=== PATIENT | female | born 1995 | race Caucasian/White ===

== ENCOUNTER 2018-11-07 10:29 | Emergency (ER) | payer MEDICAID, OTHER ==
[~2018-11-07] VITALS: Ht 167.6 cm; Wt 78.9 kg
[~2018-11-07 10:29] MED LIST: AMOX500C2 PO; BCP; HYDR-757 PO; LISD10CA PO
--- OUTSIDE RECORDS SUMMARY | 2018-11-07 10:34 | XMS REPORT ---
Author Author Gray Aiken [facility] Address [address], [address] [place] [address] Care Team Providers Care Ruling Technician Name Role Phone Gray Aiken Unavailable PROBLEMS Unknown Problems ALLERGIES No Information SOCIAL HISTORY Never Assessed PLAN OF CARE VITAL SIGNS MEDICATIONS Unknown Medications RESULTS No Results PROCEDURES No Known procedures IMMUNIZATIONS No Known Immunizations
--- OUTSIDE RECORDS SUMMARY | 2018-11-07 10:34 | XMS REPORT ---
Author Author Jenny Pena [facility] Address [address] [place] [address], [address] [place] [address] Care Team Providers Care Milieu Coordinator Name Role Phone Jenny Pena Unavailable PROBLEMS Type Condition ICD9-CM Code [id number] Code Onset Dates Condition Status SNOMED Code Problem Overweight E66.3 Active 148192154 ALLERGIES No Information ENCOUNTERS Encounter Location Date Diagnosis [facility] [address] [place] [address] [address] [place], [place] [id number] Oct, Dental examination Z01.20 and Other specified disorders of teeth and supporting structures K08.[address] [id number] [place] [phone] Sep, control counseling Z30.09 ; Screening for STD (sexually transmitted disease) Z11.3 ; Acute pharyngitis due to other specified organisms J02.8 and Overweight E66.3 [facility] [address] [place] [address] [address] [place], [place] [id number] Sep, Dental examination Z01.20 ; Other specified disorders of teeth and supporting structures K08.89 ; Encounter for dental examination and cleaning without abnormal findings Z01.20 and Encounter for dental examination Z01.[address] [id number] [place], [place] [phone] Sep, IMMUNIZATIONS No Known Immunizations SOCIAL HISTORY Never Assessed REASON FOR VISIT D-record PLAN OF CARE VITAL SIGNS MEDICATIONS Medication Instructions Dosage Frequency Start Date End Date Duration Status Flonase 50 MCG/ACT Nasally Once a day 1 spray in each nostril 24h Sep, 30 day(s) Active Depo-Provera Sep, Active Depo-Provera 150 MG/ML Intramuscular every 3 months 1 ml Sep, 90 days Active Mucinex Active Benzonatate 100 MG Orally Three times a day 1 capsule as needed 8h Sep, 7 days Active RESULTS No Results PROCEDURES No Known procedures INSTRUCTIONS MEDICATIONS ADMINISTERED No Known Medications MEDICAL (GENERAL) HISTORY Type Description Date Medical History Overweight Surgical History tonsillectomy
--- OUTSIDE RECORDS SUMMARY | 2018-11-07 10:34 | XMS REPORT ---
Author Author Jenny Pena [facility] Address [address] [place] [address], [facility] [address] [place] [address] Care Team Providers Care Spacer Type Bar And Segment Name Role Phone Jenny Pena Unavailable PROBLEMS Type Condition ICD9-CM Code MPT66-NT Code Onset Dates Condition Status SNOMED Code Problem Overweight E66.3 Active 081491008 ALLERGIES No Known Allergies ENCOUNTERS Encounter Location Date Diagnosis [address] [id number] [phone] Sep, control counseling Z30.09 ; Screening for STD (sexually transmitted disease) Z11.3 ; Acute pharyngitis due to other specified organisms J02.8 and Overweight E66.3 [facility] [address] [place] [id number] Sep, Dental examination Z01.20 ; Other specified disorders of teeth and supporting structures K08.89 ; Encounter for dental examination and cleaning without abnormal findings Z01.20 and Encounter for dental examination Z01.[address] [id number] [place], [place] [phone] Sep, IMMUNIZATIONS No Known Immunizations SOCIAL HISTORY Never Assessed REASON FOR VISIT D-ER, D - ADULT ANTONY, D-Adult Comprehensive Exam PLAN OF CARE Activity Details Follow Up 2 Weeks Reason:D-ANTONY VITAL SIGNS Heart Rate 79 /min 2018-10-05 Blood pressure systolic 102 mm Hg 2018-10-05 Blood pressure diastolic 67 mm Hg 2018-10-05 MEDICATIONS No Known Medications RESULTS No Results PROCEDURES Procedure Date Ordered Result Body Site LTD ORAL EVALUATION - PROBLEM FOCUS Oct 05, 2018 INTRAORL-PERIAPICAL 1 FILM [id number] Oct 05, 2018 PANORAMIC FILM SEE ALSO CODE 24750 Oct 05, 2018 BITEWING - SINGLE FILM Oct 05, 2018 INSTRUCTIONS MEDICATIONS ADMINISTERED No Known Medications MEDICAL (GENERAL) HISTORY Type Description Date Medical History Overweight Surgical History tonsillectomy
--- OUTSIDE RECORDS SUMMARY | 2018-11-07 10:34 | XMS REPORT ---
Author Author MARILEE TY [facility] Address Unknown Care Team Providers Care Engineering Designer Name Role Phone MARILEE TY Unavailable PROBLEMS Type Condition ICD9-CM Code EHX49-BO Code Onset Dates Condition Status SNOMED Code Problem Headache R51 Active 574252340 Problem Depressive disorder F32.9 Active 65181113 Problem Nondependent cannabis abuse F12.10 Active 426167220 Problem Attention deficit disorder without hyperactivity F90.0 Active 24249697 Problem Attention deficit disorder with hyperactivity F90.9 Active 691796056 ALLERGIES No Known Allergies SOCIAL HISTORY Never Assessed PLAN OF CARE Activity Details Follow Up 1 Week Reason:filling #8 VITAL SIGNS MEDICATIONS No Known Medications RESULTS No Results PROCEDURES Procedure Date Ordered Result Body Site LTD ORAL EVALUATION - PROBLEM FOCUS March 17, 2017 INTRAORL-PERIAPICAL 1 FILM 16044 March 17, 2017 IMMUNIZATIONS No Known Immunizations MEDICAL (GENERAL) HISTORY Type Description Date Medical History ADHD
--- OUTSIDE RECORDS SUMMARY | 2018-11-07 10:34 | XMS REPORT ---
Author Author RONAK DELGADO [facility] e[employer] Address Unknown Phone Unavailable Care Team Providers Care Dairy Cattle Farm Manager Name Role Phone RONAK DELGADO CP Unavailable Allergies No Known Allergies Problems Problem Type Condition Code Onset Dates Condition Status Problem Surveillance of other previously prescribed contraceptive method V25.49 Active Problem Nondependent cannabis abuse, unspecified 305.20 Active Problem General counseling for initiation of other contraceptive measures V25.02 Active Problem Attention deficit disorder of childhood with hyperactivity 314.01 Active Problem examination or test, negative result V72.41 Active Problem Unspecified viral infection, in conditions classified elsewhere and of unspecified site 079.99 Active Problem Cough 786.2 Active Problem Headache 784.0 Active Problem Allergic rhinitis due to pollen 477.0 Active Problem Diarrhea 787.91 Active Problem MENINGOCOCCAL DX V03.89 Active Problem Attention deficit disorder of childhood without mention of hyperactivity 314.00 Active Problem Depressive disorder, not elsewhere classified 311 Active Problem Acute sinusitis, unspecified 461.9 Active Problem Encounter for long-term (current) use of other medications V58.69 Active Problem Acute pharyngitis 462 Active Medications Medication Code System Code Instructions Start Date End Date Status Dosage Vyvanse [facility] [address]-89 70 MG Orally Once a day. Dr Rodriguez to sign for Robson Sep 04, 2014 take 1 capsule (70 mg) by oral route once daily in the morning For ADHD Results No Known Results Summary Purpose eClinicalWorks Submission
--- OUTSIDE RECORDS SUMMARY | 2018-11-07 10:34 | XMS REPORT ---
Author Author RAISSA LOZOYA Organization [employer] Address Unknown Phone Unavailable Care Team Providers Care Fish Roe Processor Name Role Phone RAISSA LOZOYA CP Unavailable Allergies No Known Allergies Problems Problem Type Condition Code Onset Dates Condition Status Problem Headache R51 Active Problem Nondependent cannabis abuse F12.10 Active Problem Attention deficit disorder with hyperactivity F90.9 Active Problem Attention deficit disorder without hyperactivity F90.0 Active Problem Depressive disorder F32.9 Active Medications Medication Code System Code Instructions Start Date End Date Status Dosage Vyvanse [facility] [id number] 70 MG TAKE ONE CAPSULE BY MOUTH ONCE DAILY IN THE MORNING FOR ADHD Results No Known Results Summary Purpose eClinicalWorks Submission
--- OUTSIDE RECORDS SUMMARY | 2018-11-07 10:34 | XMS REPORT ---
Author Author EVELINA THOMASON [facility] eClinical[employer] Address Unknown Phone Unavailable Care Team Providers Care Program Consultant Name Role Phone EVELINA THOMASON CP Unavailable Allergies, Adverse Reactions, Alerts Substance Reaction Event Type N.K.D.A. Info Not Available Non Drug Allergy Problems Problem Type Condition Code Onset Dates [...] pollen 477.0 Active Problem Diarrhea 787.91 Active Assessment Attention-deficit hyperactivity disorder, predominantly hyperactive type F90.1 Active Problem MENINGOCOCCAL DX V03.89 Active Problem Attention deficit disorder of childhood without mention of hyperactivity 314.00 Active Problem Depressive disorder, not elsewhere classified 311 Active Problem Acute sinusitis, unspecified 461.9 Active Problem Encounter for long-term (current) use of other medications V58.69 Active Problem Acute pharyngitis 462 Active Medications Medication Code System Code Instructions Start Date End Date Status Dosage Depo-Provera [facility] [address]-27 150 mg/mL Dec 22, 2013 inject 150 mg by intramuscular route every 3 months Vyvanse [facility] [address]-00 70 MG Orally Once a day. Dr Rodriguez to sign for Robson Sep 04, 2014 take 1 capsule (70 mg) by oral route once daily in the morning For ADHD Adderall [facility] [address]-37 10 MG Orally Once a day at 1600 Oct 26, 2015 1 tablet Procedures Procedure Coding System Code Date Office Visit, Est Pt., Level 4 CPT-4 00632 Oct 26, 2015 Vital Signs Date/Time: Oct 26, 2015 Cardiac Monitoring Heart Rate 100 bpm Weight 159.2 lbs Height 66 in Wt Percentile 89.46 % BMI 25.69 Index Blood Pressure Diastolic 70 mmHg Blood Pressure Systolic 120 mmHg BMIPercentile 85.12 % Results No Known Results Summary Purpose eClinicalWorks Submission
--- OUTSIDE RECORDS SUMMARY | 2018-11-07 10:35 | XMS REPORT ---
Author Author JANNY GUEVARA Organization [employer] Address Unknown Phone Unavailable Care Team Providers Care Parking Ramp Attendant Name Role Phone JANNY GUEVARA CP Unavailable Allergies No Known Allergies Problems [...] Instructions Start Date End Date Status Dosage Emmanuellenokristin [facility] [address]-01 70 MG Orally Once a day Sep 04, 2014 take 1 capsule (70 mg) by oral route once daily in the morning For ADHD Results No Known Results Summary Purpose eClinicalWorks Submission
--- OUTSIDE RECORDS SUMMARY | 2018-11-07 10:35 | XMS REPORT ---
Author Author SLIME CAUSEY Organization [employer] Address Unknown Phone Unavailable Care Team Providers Care Medical Orderly Name Role Phone SLIME CAUSEY CP Unavailable Allergies, Adverse Reactions, Alerts Substance [...] 477.0 Active Problem Diarrhea 787.91 Active Assessment Allergic rhinitis J30.9 Active Assessment Upper respiratory symptom R09.89 Active Problem MENINGOCOCCAL DX V03.89 Active Problem Attention deficit disorder of childhood without mention of hyperactivity 314.00 Active Problem Depressive disorder, not elsewhere classified 311 Active Problem Acute sinusitis, unspecified 461.9 Active Problem Encounter for long-term (current) use of other medications V58.69 Active Problem Acute pharyngitis 462 Active Medications Medication Code System Code Instructions Start Date End Date Status Dosage Vyvanse [facility] [address]-28 70 MG Orally Once a day. Dr Rodriguez to sign for Robson Sep 04, 2014 take 1 capsule (70 mg) by oral route once daily in the morning For ADHD Adderall [facility] [address]-99 10 MG Orally Once a day at 1600 Oct 26, 2015 1 tablet Nasal Mist [facility] [address] not defined Fluticasone Propionate [facility] [address]-19 50 MCG/ACT Nasally Once a day Oct 29, 2015 1 spray in each nostril Mucinex Fast-Max Cold Flu [facility] [address]-24 not defined Procedures Procedure Coding System Code Date Office Visit, Est Pt., Level 3 CPT-4 42115 Oct 29, 2015 MEASURE BLOOD OXYGEN LEVEL CPT-4 54590 Oct 29, 2015 Vital Signs Date/Time: Oct 29, 2015 Temperature 98.2 F BMIPercentile 85.89 % Weight 160.4 lbs Height 66 in Oximetry 98 % Blood Pressure Diastolic 72 mmHg Blood Pressure Systolic 100 mmHg Cardiac Monitoring Heart Rate 78 bpm Wt Percentile 89.99 % BMI 25.89 Index Results No Known Results Summary Purpose eClinicalWorks Submission
--- OUTSIDE RECORDS SUMMARY | 2018-11-07 10:35 | XMS REPORT ---
Author Author RONAK DELGADO [facility] eClinicalWorks Address Unknown Phone Unavailable Care Team Providers Care Felt Machine Mechanic Name Role Phone RONAK DELGADO CP Unavailable [...] Start Date End Date Status Dosage Vyvanse [facility] [address]-96 70 MG Orally Once a day. Dr Rodriguez to sign for Robson Sep 04, 2014 take 1 capsule (70 mg) by oral route once daily in the morning For ADHD Results No Known Results Summary Purpose eClinicalWorks Submission
--- OUTSIDE RECORDS SUMMARY | 2018-11-07 10:35 | XMS REPORT ---
Author Author GERARDOMARILEE HINKLE [facility] Address Unknown Care Team Providers Care Material Control Clerk Name Role Phone MARILEE TY Unavailable PROBLEMS Type Condition ICD9-CM Code OPA63-EB Code Onset Dates Condition Status SNOMED Code Problem Headache R51 Active 346761837 Problem Depressive disorder F32.9 Active 20470869 Problem Nondependent cannabis abuse F12.10 Active 372104886 Problem Attention deficit disorder without hyperactivity F90.0 Active 84083739 Problem Attention deficit disorder with hyperactivity F90.9 Active 499601134 ALLERGIES No Known Allergies ENCOUNTERS Encounter Location Date Diagnosis [facility] [id number] [place] [address] [id number] May, Dental examination Z01.20 [facility] [id number] [place] [address] [id number] March, Dental examination Z01.20 [facility] [id number] [place] [address] 54235- 7638 Sep, [facility] [id number] [place] [address] 91474- 5242 Aug, [facility] [id number] [place] [address] 16109- 0138 Jul, [facility] [id number] [place] [address] 19651- 0374 May, [facility] [id number] [place] [address] 62945- 8089 May, [facility] [id number] [place] [address] 01212- 2496 Apr, [facility] [id number] [place] [address] 37753- 5379 Apr, [facility] [address] [address] March, Attention-deficit hyperactivity disorder, predominantly hyperactive type F90.1 [facility] [id number] [place] [address] 49468 -1601 March, Sore throat J02.9 and Strep throat J02.0 [place] [id number] [place] [address] 64211- 9818 March, [facility] [id number] [place] [address] 71704- 3509 Feb, [place] [address] [address]- 7820 Jan, [facility] [place] [id number] [place] [address] 58598 -4244 24 Dec, 2015 Diarrhea R19.7 and Vomiting without nausea R11.11 [place] [id number] [place] [address] 77274- 6832 Dec, [facility] [place] [id number] [place] [address] 73499 -8702 Dec, Strep throat J02.0 [place] [id number] [place] [address] 15963- 4162 03 Dec, 2015 Encounter for counseling regarding contraception Z30.9 ; Encounter for initial prescription of injectable contraceptive Z30.013 and Routine screening for STI (sexually transmitted infection) Z11.3 [place] [address] [place] [address] 19720- 7350 Nov, [facility] [place] [id number] [place] [address] 49596 -0319 14 Oct, 2015 Upper respiratory symptom R09.89 and Allergic rhinitis J30.9 [place] [address] [place] [address] 56886- 9856 11 Oct, 2015 Attention-deficit hyperactivity disorder, predominantly hyperactive type F90.1 [place] [address] [address] 58[address] Sep, [facility] [id number] [place] [address] 40827- 8532 Sep, Encounter for [facility] Z23 [facility] [address] [address] 05 Sep, 2015 Otitis media of left ear H66.92 ; Acute pharyngitis 462 and Pharyngitis J02.9 [facility] [id number] [address] 8997 Sep, [facility] [id number] [place] [address] 16149- 0735 10 Aug, 2015 [facility] [id number] [place] [address] 57087- 4631 11 Jul, 2015 Attention deficit disorder of childhood with hyperactivity 314.01 [facility] [id number] [place] [address] 33771- 3232 31 Jun, 2015 Pharyngitis 462 [facility] [id number] [place] [address] 13232- 8448 14 Feb, 2015 [facility] [id number] [place] [address] 66217- 2520 Feb, [facility] [address] [address]- 6538 Aug, [facility] [id number] [address]- 9733 Aug, [facility] [address] [address]- 5438 18 Jul, 2014 [facility] [address] [address]- 7790 18 Jul, 2014 [facility] [address] [address]- 8198 08 Jul, 2014 [facility] [address] [place] [address]- 2921 Jul, [facility] [place] [facility] [address] [id number] [place] [address]- 7734 Jun, [facility] [place] [facility] [address] [id number] [place] [address]- 6493 Jun, [facility] [place] [facility] [address] [id number] [place] [address]- 0764 Jun, [facility] [place] [facility] [address] [id number] [place] [address]- 8514 Jun, [facility] [place] [facility] [address] [id number] [place] [address]- 3685 Jun, [facility] [place] [facility] [address] [id number] [place] [address]- 3638 Jun, [facility] [place] [facility] [address] [id number] [place] [address]- 4877 Jun, [facility] [place] [facility] [address] [id number] [place] [address]- 6194 Jun, [facility] [place] [facility] [address] [id number] [place] [address]- 2696 May, [facility] [place] [facility] [address] [id number] [place] [address]- 9480 May, [facility] [place] [facility] [address] [id number] [place] [address]- 3961 Apr, [facility] [place] [facility] [address] [id number] [place] [address]- 7696 Apr, [facility] [place] [facility] [address] [id number] [place] [address]- 7902 Apr, [facility] [place] [facility] [address] [id number] [place] [address]- 5813 Apr, [facility] [place] [facility] [address] [id number] [place] [address]- 9901 Apr, [facility] [place] [facility] [address] [id number] [place] [address]- 3655 Apr, [facility] [place] [facility] [address] [id number] [place] [address]- 6687 March, [facility] [place] [facility] [address] [id number] [place] [address]- 7136 March, [facility] [place] [facility] [address] [id number] [place] [address]- 4985 March, [facility] [place] [facility] [address] [id number] [place] [address]- 2476 March, [facility] [place] [facility] [address] [id number] [place] [address]- 0737 March, [facility] [place] [facility] [address] [id number] [place] [address]- 7461 March, [facility] [place] [facility] [address] [id number] [place] [address]- 4445 March, [facility] [place] [facility] [address] [id number] [place] [address]- 7768 March, [facility] [place] [facility] [address] [id number] [place] [address]- 4305 March, [facility] [place] [facility] [address] [id number] [place] [address]- 9724 March, [facility] [place] [facility] [address] [id number] [place] [address]- 8771 Feb, [facility] [place] [facility] [address] [id number] [place] [address]- 3434 Feb, [facility] [place] [facility] [address] [id number] [place] [address]- 6931 Feb, [facility] [place] [facility] [address] [id number] [place] [address]- 8535 Feb, [facility] [place] [facility] [address] [id number] [place] [address]- 0938 Feb, [facility] [place] [facility] [address] [id number] [place] [address]- 3869 Feb, [facility] [place] [facility] [address] [id number] [place] [address]- 4402 Feb, [facility] [place] [facility] [address] [id number] [place] [address]- 0900 Feb, [facility] [place] [facility] [address] [id number] [place] [address]- 2725 Feb, [facility] [place] [facility] [address] [id number] [place] [address]- 3338 Feb, [facility] [place] [facility] [address] [id number] [place] [address]- 1671 Feb, [facility] [place] [facility] [address] [id number] [place] [address]- 2187 Jan, [facility] [place] [facility] [address] [id number] [place] [address]- 3392 Jan, [facility] [place] [facility] [address] [id number] [place] [address]- 8295 Jan, [facility] [place] [facility] [address] [id number] [place] [address]- 1172 Jan, [facility] [place] [facility] [address] [id number] [place] [address]- 4442 Jan, [facility] [place] [facility] [address] [id number] [place] [address]- 2314 Jan, [facility] [place] [facility] [address] [id number] [place] [address]- 5249 Jan, [facility] [place] [facility] [address] [id number] [place] [address]- 4967 Jan, [facility] [place] [facility] [address] [id number] [place] [address]- 8909 Jan, [facility] [place] [facility] [address] [id number] [place] [address]- 5673 14 Jan, 2014 [facility] [place] [facility] [address] [id number] [place] [address]- 7642 14 Jan, 2014 [facility] [place] [facility] [address] [id number] [place] [address]- 1604 06 Jan, 2014 [facility] [place] [facility] [address] [id number] [place] [address]- 4504 06 Jan, 2014 [facility] [place] [facility] [address] [id number] [place] [address]- 6020 05 Jan, 2014 [facility] [place] [facility] [address] [id number] [place] [address]- 7975 05 Jan, 2014 [facility] [place] [facility] [address] [id number] [place] [address]- 0159 Dec, [facility] [place] [facility] [address] [id number] [place] [address]- 6803 Dec, [facility] [place] [facility] [address] [id number] [place] [address]- 3310 Dec, [facility] [place] [facility] [address] [facility] [id number] [place] [address]- 9483 Dec, [facility] [place] [facility] [address] [facility] [id number] [place] [address]- 0334 Dec, [facility] [place] [facility] [address] [id number] [place] [address]- 7590 Dec, [facility] [place] [facility] [address] [id number] [place] [address]- 6512 Dec, [facility] [place] [facility] [address] [id number] [place] [address]- 6839 Dec, [facility] [place] [facility] [address] [id number] [place] [address]- 9439 Nov, [facility] [place] [facility] [address] [id number] [address]- 9350 Nov, [facility] [address] [id number] [place] [address]- 7126 Nov, [facility] [place] [facility] [address] [id number] [address]- 6730 Nov, [facility] [place] [facility] [address] [facility] [id number] [place] [address]- 0658 Oct, [facility] [place] [facility] [address] [id number] [address]- 2115 Oct, [facility] [place] [facility] [address] [id number] [place] [address]- 9626 Sep, [facility] [place] [facility] [address] [id number] [place] [address]- 2684 Sep, [facility] [address] [facility] [id number] [address]- 2153 Sep, [facility] [place] [facility] [address] [id number] [address]- 1250 Sep, [facility] [place] [facility] [id number] [address]- 3929 Sep, [facility] [place] [facility] [address] [facility] [id number] [address]- 3579 Sep, [facility] [place] [facility] [address] [id number] [address]- 7490 Sep, [facility] [place] [facility] [address] [id number], [place] [address]- 8797 Sep, [facility] [place] [facility] [address] [id number] [address]- 4577 Aug, [facility] [place] [facility] [address] [facility] [id number] [address]- 1506 Aug, [facility] [place] [facility] [address] [facility] [id number] [address]- 2144 Aug, [facility] [place] [facility] [address] [id number] [place] [address]- 9761 Aug, [facility] [place] [facility] [address] [id number] [place] [address]- 1182 Aug, [facility] [place] [facility] [address] [id number] [place] [address]- 8960 Aug, [facility] [place] [facility] [address] [id number] [place] [address]- 1653 Aug, [facility] [place] [facility] [address] [id number] [place] [address]- 0287 Aug, [facility] [place] [facility] [address] [id number] [place] [address]- 9116 Jun, [facility] [place] [facility] [address] [id number] [place] [address]- 5516 Jun, [facility] [place] [facility] [address] [id number] [place] [address]- 6073 Jun, [facility] [place] [facility] [address] [id number] [place] [address]- 9398 Jun, [facility] [place] [facility] [address] [id number] [place] [address]- 4002 Jun, [facility] [place] [facility] [address] [id number] [place] [address]- 8955 Jun, [facility] [place] [facility] [address] [id number] [place] [address]- 8559 Jun, [facility] [place] [facility] [address] [id number] [place] [address]- 1552 May, [facility] [place] [facility] [address] [id number] [place] [address]- 1719 Apr, [facility] [place] [facility] [address] [id number] [place] [address]- 9467 Apr, [facility] [place] [facility] [address] [id number] [place] [address]- 6913 Apr, [facility] [address] [id number] [place] [address]- 2899 March, [facility] [place] [facility] [address] [id number] [place] [address]- 9916 March, [facility] [place] [facility] [address] [id number] [place] [address]- 8598 Feb, [facility] [place] [facility] [address] [id number] [place] [address]- 3053 Feb, [facility] [place] [facility] [address] [id number] [place] [address]- 5291 Jan, [facility] [place] [facility] [address] [id number] [place] [address]- 7298 Jan, [facility] [place] [facility] [address] [id number] [place] [address]- 0723 Dec, [facility] [place] [facility] [address] [id number] [place] [address]- 3797 Nov, [facility] [place] [facility] [address] [id number] [place] [address]- 4377 Nov, [facility] [place] [facility] [address] [facility] [id number] [place] [address]- 2450 Oct, [facility] [place] [facility] [address] [id number], [place] [address]- 1275 Oct, [facility] [place] [facility] [address] [id number], [place] [address]- 4912 Sep, [facility] [place] [facility] [address] [id number] [place] [address]- 5691 Sep, [facility] [place] [facility] [address] [id number] [place] [address]- 0408 Aug, [facility] [place] [facility] [address] [id number] [place] [address]- 7046 Aug, [facility] [place] [facility] [address] [address]- 5357 Aug, [facility] [address] [address]- 0711 Aug, [facility] [address], [place] [address]- 1878 Jul, [facility] [address] [address]- 4254 Jun, [facility] [address] [address]- 1648 Jun, [facility] [address], [place] [address]- 1955 Jun, [facility] [address] [address]- 5447 Jun, [facility] [id number] [address]- 3755 March, [facility] [address] [address]- 1724 Feb, [facility] [address] [address]- 7592 Jan, [facility] [address] [address]- 4728 Oct, [facility] [address] [id number] [address]- 9864 Sep, IMMUNIZATIONS No Known Immunizations SOCIAL HISTORY Never Assessed REASON FOR VISIT filling PLAN OF CARE Activity Details Follow Up prn Reason:hygeine VITAL SIGNS Height 66 in 2017-05-29 Blood pressure systolic 95 mmHg 2017-05-29 Blood pressure diastolic 61-wrist mmHg 2017-05-29 MEDICATIONS No Known Medications RESULTS No Results PROCEDURES Procedure Date Ordered Result Body Site RSN COMPOS-4/> SURF/W/INCISAL ANG May 29, 2017 INSTRUCTIONS MEDICATIONS ADMINISTERED No Known Medications MEDICAL (GENERAL) HISTORY Type Description Date Medical History ADHD
--- OUTSIDE RECORDS SUMMARY | 2018-11-07 10:35 | XMS REPORT ---
Author Author RAISSA LOZOYA [facility] Address [address] [place] [address] Care Team Providers Care Fuels Engineer Name Role Phone DEVORA RAISSA Unavailable PROBLEMS Type Condition ICD9-CM Code [id number] Code Onset Dates Condition Status SNOMED Code Problem Attention deficit disorder with hyperactivity F90.9 Active 593897986 Problem Headache R51 Active 344054938 Problem Depressive disorder F32.9 Active 52918585 Problem Nondependent cannabis abuse F12.10 Active 701874258 Problem Attention deficit disorder without hyperactivity F90.0 Active 88431750 ALLERGIES Unknown Allergies SOCIAL HISTORY No smoking Hx information available PLAN OF CARE VITAL SIGNS MEDICATIONS Medication Instructions Dosage Frequency Start Date End Date Duration Status Vyvanse 70 MG TAKE ONE CAPSULE BY MOUTH ONCE DAILY IN THE MORNING FOR ADHD Active RESULTS No Results PROCEDURES No Known procedures IMMUNIZATIONS No Known Immunizations
--- OUTSIDE RECORDS SUMMARY | 2018-11-07 10:35 | XMS REPORT ---
Author Author RONAK DELGADO [facility] [employer] Address Unknown Phone Unavailable Care Team Providers Care Verification Manager Name Role Phone RONAK DELGADO CP Unavailable Allergies, Adverse Reactions, Alerts Substance Reaction Event Type N.K.D.A. Info Not Available Non Drug Allergy Problems Problem Type Condition ICD-9 Code Onset Dates Condition Status Problem Surveillance [...] 477.0 Active Problem Diarrhea 787.91 Active Assessment Attention deficit disorder of childhood with hyperactivity 314.01 Active Problem MENINGOCOCCAL DX V03.89 Active Problem Attention deficit disorder of childhood without mention of hyperactivity 314.00 Active Problem Depressive disorder, not elsewhere classified 311 Active Problem Acute sinusitis, unspecified 461.9 Active Problem Encounter for long-term (current) use of other medications V58.69 Active Problem Acute pharyngitis 462 Active Medications Medication Code System Code Instructions Start Date End Date Status Dosage Depo-Provera [facility] [address]-28 150 mg/mL Dec 22, 2013 inject 150 mg by intramuscular route every 3 months Vyvanse [facility] [address]-72 70 mg Sep 04, 2014 take 1 capsule (70 mg ) by oral route once daily in the morning For ADHD Procedures Procedure Coding System Code Date Office Visit, New Pt., Level 5 CPT-4 52164 Jul 27, 2015 Vital Signs Date/Time: Jul 27, 2015 Temperature 98.6 F BMIPercentile 87.97 % Weight 159.5 lbs Height 65.2 in BMI 26.38 Index Blood Pressure Diastolic 65 mmHg Blood Pressure Systolic 80 mmHg Cardiac Monitoring Heart Rate 88 bpm Wt Percentile 89.9 % Ht Percentile 65.2 % Results No Known Results Summary Purpose eClinical[employer] Submission
--- OUTSIDE RECORDS SUMMARY | 2018-11-07 10:35 | XMS REPORT ---
Author Author AYDEE LYONS [facility] e[employer] Address Unknown Phone Unavailable Care Team Providers Care Siding Installer Name Role Phone AYDEE LYONS CP Unavailable Allergies No Known Allergies Problems [...] 477.0 Active Problem Diarrhea 787.91 Active Assessment Encounter for immunization Z23 Active Problem MENINGOCOCCAL DX V03.89 Active Problem Attention deficit disorder of childhood without mention of hyperactivity 314.00 Active Problem Depressive disorder, not elsewhere classified 311 Active Problem Acute sinusitis, unspecified 461.9 Active Problem Encounter for long-term (current) use of other medications V58.69 Active Problem Acute pharyngitis 462 Active Medications Medication Code System Code Instructions Start Date End Date Status Dosage Depo-Provera [facility] [address]-82 150 mg/mL Dec 22, 2013 inject 150 mg by intramuscular route every 3 months Procedures Procedure Coding System Code Date VARICELLA CPT-4 87806 Oct 09, 2015 SINGLE IMMUNIZATION ADMIN CPT-4 22798 Oct 09, 2015 HEP A (PED/ADOL-2 DOSE) CPT-4 24486 Oct 09, 2015 IMMUNIZATION ADMIN, EACH ADD (please include units) CPT-4 60198 Oct 09, 2015 Results No Known Results Immunizations Vaccine Administration Date HEP A (PED/ADOL-2 DOSE) Oct 09, 2015 VARICELLA Oct 09, 2015 Summary Purpose [employer] Submission
--- OUTSIDE RECORDS SUMMARY | 2018-11-07 10:35 | XMS REPORT ---
Author Author EVELINA THOMASON Organization [employer] Address Unknown Phone Unavailable Care Team Providers Care Director [place] [employer] Name Role Phone EVELINA THOMASON Unavailable Allergies No Known Allergies Problems Problem Type Condition Code Onset Dates Condition Status Problem Headache R51 Active Problem Nondependent cannabis abuse F12.10 Active Problem Attention deficit disorder with hyperactivity F90.9 Active Problem Attention deficit disorder without hyperactivity F90.0 Active Problem Depressive disorder F32.9 Active Medications Medication Code System Code Instructions Start Date End Date Status Dosage Vyvanse [facility] [address]-02 70 MG Orally Once a day. Sep 04, 2014 take 1 capsule (70 mg) by oral route once daily in the morning For ADHD Adderall [facility] [address]-76 10 MG Orally Once a day at 1600 Oct 26, 2015 1 tablet Results No Known Results Summary Purpose eClinicalWorks Submission
--- OUTSIDE RECORDS SUMMARY | 2018-11-07 10:35 | XMS REPORT ---
Author Author RAISSA LOZOYA Organization [employer] Address Unknown Phone Unavailable Care Team Providers Care Interface Analyst Name Role Phone RAISSA LOZOYA CP Unavailable [...] Start Date End Date Status Dosage Vyvanse [facility] [id number] 70 MG TAKE ONE CAPSULE BY MOUTH ONCE DAILY IN THE MORNING FOR ADHD Results No Known Results Summary Purpose eClinicalWorks Submission
--- OUTSIDE RECORDS SUMMARY | 2018-11-07 10:35 | XMS REPORT ---
Author Author ARGENIS WANG [facility] eClinicalWorks Address Unknown Phone Unavailable Care Team Providers Care Farm Machinery Erector Name Role Phone ARGENIS WANG CP Unavailable Allergies, Adverse Reactions, Alerts Substance [...] 477.0 Active Problem Diarrhea 787.91 Active Assessment Pharyngitis 462 Active Problem MENINGOCOCCAL DX V03.89 Active Problem Attention deficit disorder of childhood without mention of hyperactivity 314.00 Active Problem Depressive disorder, not elsewhere classified 311 Active Problem Acute sinusitis, unspecified 461.9 Active Problem Encounter for long-term (current) use of other medications V58.69 Active Problem Acute pharyngitis 462 Active Medications Medication Code System Code Instructions Start Date End Date Status Dosage Vyvanse [facility] [address]-07 70 mg Sep 04, 2014 take 1 capsule (70 mg ) by oral route once daily in the morning For ADHD Depo-Provera [facility] [address]-79 150 mg/mL Dec 22, 2013 inject 150 mg by intramuscular route every 3 months Procedures Procedure Coding System Code Date STREP A ASSAY W/OPTIC CPT-4 77458 Jul 16, 2015 Office Visit, Est Pt., Level 3 CPT-4 77091 Jul 16, 2015 Vital Signs Date/Time: Jul 16, 2015 Temperature 98.3 F BMIPercentile 81.8 % Weight 156.0 lbs Height 66.5 in BMI 24.80 Index Blood Pressure Diastolic 72 mmHg Blood Pressure Systolic 104 mmHg Cardiac Monitoring Heart Rate 72 bpm Wt Percentile 88.38 % Ht Percentile 81.68 % Results No Known Results Summary Purpose eClinicalWorks Submission
--- OUTSIDE RECORDS SUMMARY | 2018-11-07 10:35 | XMS REPORT ---
Author Author MUKESH RAZO [employer] Address Unknown Phone Unavailable Care Team Providers Care Desktop Support Technician Name Role Phone MUKESH RAZO CP Unavailable Allergies, Adverse Reactions, Alerts Substance Reaction Event Type N.K.D.A. Info Not Available Non Drug Allergy Problems Problem Type Condition Code Onset Dates Condition Status Assessment Routine screening for STI (sexually transmitted infection) Z11.3 Active Problem Headache R51 Active Problem Nondependent cannabis abuse F12.10 Active Problem Attention deficit disorder with hyperactivity F90.9 Active Assessment Encounter for counseling regarding contraception Z30.9 Active Assessment Encounter for initial prescription of injectable contraceptive Z30.013 Active Problem Attention deficit disorder without hyperactivity F90.0 Active Problem Depressive disorder F32.9 Active Medications Medication Code System Code Instructions Start Date End Date Status Dosage Adderall [facility] [address]-55 10 MG Orally Once a day at 1600 Oct 26, 2015 1 tablet Depo-Provera [facility] [address]-48 150 MG/ML Intramuscular Every 3 months Dec 22, 2013 inject 150 mg by intramuscular route every 3 months Vyvanse [facility] [address]-53 70 MG Orally Once a day. Sep 04, 2014 take 1 capsule (70 mg) by oral route once daily in the morning For ADHD Procedures Procedure Coding System Code Date No Charge CPT-4 17112 Dec 19, 2015 Office Visit, Est Pt., Level 3 CPT-4 28910 Dec 19, 2015 URINE TEST CPT-4 15087 Dec 19, 2015 THER/PROPH/DIAG INJ, SC/IM CPT-4 06090 Dec 19, 2015 DEPO PROVERA (150 MG/ML) CPT-4 J1050 Dec 19, 2015 Vital Signs Date/Time: Dec 19, 2015 Temperature 98.7 F Weight 159.9 lbs Height 66 in BMI 25.81 Index Blood Pressure Diastolic 68 mmHg Blood Pressure Systolic 104 mmHg Cardiac Monitoring Heart Rate 90 bpm BMIPercentile 85.45 % Wt Percentile 89.67 % Results Name Result Date Reference Range Unit Abnormality Flag TEST, URINE (IN HOUSE) ----RESULTS negative [id number] ----Lot # [id number] ----Control + [id number] ----Exp date [id number] Summary Purpose eClinicalWorks Submission
--- OUTSIDE RECORDS SUMMARY | 2018-11-07 10:36 | XMS REPORT ---
Author Author ELLEN MARR [facility] e[employer] Address Unknown Phone Unavailable Care Team Providers Care Appellate Court Judge Name Role Phone ELLEN MARR CP Unavailable Allergies, Adverse Reactions, Alerts Substance [...] 477.0 Active Problem Diarrhea 787.91 Active Assessment Acute pharyngitis 462 Active Assessment Otitis media of left ear H66.92 Active Assessment Pharyngitis J02.9 Active Problem MENINGOCOCCAL DX V03.89 Active Problem [...] Status Dosage Vyvanse [facility] [address]-49 70 MG Orally Once a day. Dr Rodriguez to sign for Robson Sep 04, 2014 take 1 capsule (70 mg) by oral route once daily in the morning For ADHD Procedures Procedure Coding System Code Date DEPO MEDROL 80 MG/ML CPT-4 J1040 Sep 20, 2015 THER/PROPH/DIAG INJ, SC/IM CPT-4 96606 Sep 20, 2015 STREP A ASSAY W/OPTIC CPT-4 51915 Sep 20, 2015 Office Visit, Est Pt., Level 3 CPT-4 82311 Sep 20, 2015 Vital Signs Date/Time: Sep 20, 2015 Temperature 98 F BMIPercentile 88.12 % Weight 164 lbs Height 66 in BMI 26.47 Index Blood Pressure Diastolic 60 mmHg Blood Pressure Systolic 98 mmHg Cardiac Monitoring Heart Rate 90 bpm Wt Percentile 91.55 % Ht Percentile 75.87 % Results Name Result Date Reference Range Unit Abnormality Flag STREP A (IN HOUSE) Summary Purpose eClinicalWorks Submission
--- OUTSIDE RECORDS SUMMARY | 2018-11-07 10:38 | XMS REPORT | Continuity of Care Document ---
Author Author [facility] Address Unknown Phone Unavailable Allergies Active Description Code Type Severity Reaction Onset Reported/Identified Relationship to Patient Clinical Status Yes No Known Drug Allergies [id number] Miscellaneous Allergy Moderate N/A Yes NKA Drug N/A N/A Yes NKA Drug N/A N/A Yes No Known Drug Allergies [id number] Drug Allergy Unknown N/A 01/21/2011 Medications Medication Packaging Start Date Stop Date Route Dosage Sig cephalexin 09/17/2016 09/27/2016 PO 500 mg / 1 cap acetaminophen-HYDROcodone 201510/04/2016 PO Hycet 7.5 mg-325 mg/15 mL oral solution amoxicillin-clavulanate 201510/11/2016 PO Augmentin 875 mg-125 mg oral tablet metoclopramide 09/17/2017 09/27/2017 PO 10 mg / 1 tab multivitamin, 2016 PO 0 / 1 influenza virus vaccine, inactivated 09/22/2017 09/22/2017 IM FluLaval Preservative-Free Quadrivalent intramuscular suspension metoclopramide 10/16/2017 PO 5 mg / 1 tab acetaminophen 11/06/2017 PO Tylenol promethazine 11/06/2017 12/11/2017 PO 25 mg / 1 tab cephalexin 01/08/2018 PO 500 mg / 1 cap tetanus/diphth/pertuss (Tdap) adult/adol 02/08/2018 02/08/2018 IM Boostrix ( Tdap) famotidine 04/06/2018 PO 20 mg / 1 tab LIDOCAINE VIAL, 1##37; 20 ML 10/201804/27/2018 SUB Q 1 IBUPROFEN TAB, 600 MG (MOTRIN) ORAL 600 SENNA/DOCUSATE TAB (SENOKOT-S) ORAL 1 MILK OF MAGNESIA 30 ML UD CUP 10/2018 ORAL 30 DOCUSATE CALCIUM CAP, 240 MG (SURFAK) 04/27/2018 ORAL 240 DIBUCAINE OINTMENT (NUPERCAINAL) 04/27/2018 TOPICAL 1 MEDI-PADS 40 CT GEN FOR TUCKS 10/2018 TOPICAL 1 LANOLIN OINTMENT 7 GM TUBE (LANSINOH) 04/27/2018 TOPICAL 1 VITAMIN 04/27/2018 ORAL 1 ACETAMINOPHEN 325 MG TAB (TYLENOL) 04/28/2018 04/28/2018 PO 2 Problems Date Dx Coded Attending Type Code Diagnosis Diagnosed By 08/19/2010 MICHAEL DARLING DO V06.5 DT, TETANUS-DIPHTHERIA [Td] ,TDAP 08/19/2010 MICHAEL DARLING DO V06.5 DT, TETANUS-DIPHTHERIA [Td] ,TDAP 08/19/2010 MICHAEL DARLING DO V06.5 DT, TETANUS-DIPHTHERIA [Td] ,TDAP 08/19/2010 V06.5 DT, TETANUS- DIPHTHERIA [Td] ,TDAP 08/19/2010 V06.5 DT, TETANUS- DIPHTHERIA [Td] ,TDAP 08/19/2010 V06.5 DT, TETANUS- DIPHTHERIA [Td] ,TDAP 08/19/2010 V06.5 DT, TETANUS- DIPHTHERIA [Td] ,TDAP 08/19/2010 LINNEA EDWARDS APRN V06.5 DT, TETANUS-DIPHTHERIA [Td] ,TDAP 08/19/2010 MICHAEL DARLING DO V06.5 DT, TETANUS-DIPHTHERIA [Td] ,TDAP 08/19/2010 LINNEA EDWARDS APRN V06.5 DT, TETANUS-DIPHTHERIA [Td] ,TDAP 08/19/2010 JUANITA MORENO DDS V06.5 DT, TETANUS-DIPHTHERIA [Td] ,TDAP 08/19/2010 MICHAEL DARLING DO V06.5 DT, TETANUS-DIPHTHERIA [Td] ,TDAP 08/19/2010 ARGENIS WANG APRN V06.5 DT, TETANUS-DIPHTHERIA [Td] ,TDAP 08/19/2010 MICHAEL DARLING DO V06.5 DT, TETANUS-DIPHTHERIA [Td] ,TDAP 08/19/2010 ARGENIS WANG APRN R V06.5 DT, TETANUS-DIPHTHERIA [Td] ,TDAP 08/19/2010 MICHAEL DARLING DO K V06.5 DT, TETANUS-DIPHTHERIA [Td] ,TDAP 08/19/2010 DAVID PSYCHIATRIC NURSE, NADIR A V06.5 DT, TETANUS-DIPHTHERIA [Td] ,TDAP 08/19/2010 DAVID PSYCHIATRIC NURSE, NADIR A V06.5 DT, TETANUS-DIPHTHERIA [Td] ,TDAP 08/19/2010 ROSSIE PSYCHIATRIC NURSE, AYDEE A V06.5 DT, TETANUS-DIPHTHERIA [Td] ,TDAP 08/19/2010 [facility], PADMINI A V06.5 DT, TETANUS-DIPHTHERIA [Td] ,TDAP 08/19/2010 ROSSIE PSYCHIATRIC NURSE, AYDEE A V06.5 DT, TETANUS-DIPHTHERIA [Td] ,TDAP 08/19/2010 [facility], PADMINI Lainez V06.5 DT, TETANUS-DIPHTHERIA [Td] ,TDAP 08/19/2010 MICHAEL DARLING DO V06.5 DT, TETANUS-DIPHTHERIA [Td] ,TDAP 08/19/2010 [facility], PADMINI Lainez V06.5 DT, TETANUS-DIPHTHERIA [TD] ,TDAP 08/19/2010 SERENA PSYCHIATRIC NURSE, AYDEE A V06.5 DT, TETANUS-DIPHTHERIA [TD] ,TDAP 08/19/2010 [facility], PADMINI Lainez V06.5 DT, TETANUS-DIPHTHERIA [TD] ,TDAP 08/19/2010 MICHAEL DARLING DO V06.5 DT, TETANUS-DIPHTHERIA [TD] ,TDAP 08/19/2010 MICHAEL DARLING DO V06.5 DT, TETANUS-DIPHTHERIA [TD] ,TDAP 08/19/2010 JERRY PEREZ LINNEA VALERA V06.5 DT, TETANUS-DIPHTHERIA [TD] ,TDAP 08/19/2010 MICHAEL DARLING DO V06.5 DT, TETANUS-DIPHTHERIA [TD] ,TDAP 01/13/2011 MICHAEL DARLING DO 706.1 ACNE 01/13/2011 MICHAEL DARLING DO V20.2 WELL CHILD 01/13/2011 MICHAEL DARLING DO V25.09 CONTRACEPTIVE COUNSELING 01/13/2011 MICHAEL DARLING DO V25.9 Gynecologic Services Contraceptive Management 01/13/2011 MICHAEL DARLING DO 706.1 ACNE 01/13/2011 DARLING MICHAEL K V20.2 WELL CHILD 01/13/2011 LISSET DELAROSAEUGENIOA K V25.09 CONTRACEPTIVE COUNSELING 01/13/2011 LISSET DELAROSAEUGENIOA K V25.9 Gynecologic Services Contraceptive Management 01/13/2011 LISSET DELAROSAEUGENIOA K 706.1 ACNE 01/13/2011 LISSET DELAROSA MICHAEL K V20.2 WELL CHILD 01/13/2011 LISSET DELAROSAEUGENIOA K V25.09 CONTRACEPTIVE COUNSELING 01/13/2011 LISSET DELAROSAEUGENIOA K V25.9 Gynecologic Services Contraceptive Management 01/13/2011 706.1 ACNE 01/13/2011 V20.2 WELL CHILD 01/13/2011 V25.09 CONTRACEPTIVE COUNSELING 01/13/2011 V25.9 Gynecologic Services Contraceptive Management 01/13/2011 706.1 ACNE 01/13/2011 V20.2 WELL CHILD 01/13/2011 V25.09 CONTRACEPTIVE COUNSELING 01/13/2011 V25.9 Gynecologic Services Contraceptive Management 01/13/2011 706.1 ACNE 01/13/2011 V20.2 WELL CHILD 01/13/2011 V25.09 CONTRACEPTIVE COUNSELING 01/13/2011 V25.9 Gynecologic Services Contraceptive Management 01/13/2011 706.1 ACNE 01/13/2011 V20.2 WELL CHILD 01/13/2011 V25.09 CONTRACEPTIVE COUNSELING 01/13/2011 V25.9 Gynecologic Services Contraceptive Management 01/13/2011 LINNEA EDWARDS APRN 706.1 ACNE 01/13/2011 EDWARDSLINNEA ISABEL APRN V20.2 WELL CHILD 01/13/2011 LINNEA EDAWRDS APRN V25.09 CONTRACEPTIVE COUNSELING 01/13/2011 EDWARDSLINNEA ISABEL APRN V25.9 Gynecologic Services Contraceptive Management 01/13/2011 LISSET DELAROSAMICHAEL 706.1 ACNE 01/13/2011 LISSET DELAROSAEUGEINOA K V20.2 WELL CHILD 01/13/2011 DARLING MICHAEL DELAROSA V25.09 CONTRACEPTIVE COUNSELING 01/13/2011 DARLING MICHAEL DELAROSA V25.9 Gynecologic Services Contraceptive Management 01/13/2011 LINNEA EDWARDS APRN 706.1 ACNE 01/13/2011 LINNEA EDWARDS APRN V20.2 WELL CHILD 01/13/2011 JERRY CHRIS LINNEA SOTO V25.09 CONTRACEPTIVE COUNSELING 01/13/2011 JERRY PSYCHIATRIC NURSE LINNEA DAYH V25.9 Gynecologic Services Contraceptive Management 01/13/2011 WHITE DDS, JUANITA D 706.1 ACNE 01/13/2011 WHITE DDS, JUANITA D V20.2 WELL CHILD 01/13/2011 WHITE DDS, JUANITA D V25.09 CONTRACEPTIVE COUNSELING 01/13/2011 WHITE DDS, JUANITA D V25.9 Gynecologic Services Contraceptive Management 01/13/2011 DARLING DO, MICHAEL K 706.1 ACNE 01/13/2011 DARLING DO, MICHAEL K V20.2 WELL CHILD 01/13/2011 DARLING DO, MICHAEL K V25.09 CONTRACEPTIVE COUNSELING 01/13/2011 DARLING DO, MICHAEL K V25.9 Gynecologic Services Contraceptive Management 01/13/2011 FELIPE MOSHERN ARGENIS R 706.1 ACNE 01/13/2011 WANG PSYCHIATRIC NURSE, ARGENIS R V20.2 WELL CHILD 01/13/2011 FELIPE PSYCHIATRIC NURSE ARGENIS R V25.09 CONTRACEPTIVE COUNSELING 01/13/2011 WANG PSYCHIATRIC NURSE ARGENIS R V25.9 Gynecologic Services Contraceptive Management 01/13/2011 DARLING DO, MICHAEL K 706.1 ACNE 01/13/2011 DARLING DO, MICHAEL K V20.2 WELL CHILD 01/13/2011 DARLING DO, MICHAEL K V25.09 CONTRACEPTIVE COUNSELING 01/13/2011 DARLING DO, MICHAEL K V25.9 Gynecologic Services Contraceptive Management 01/13/2011 WANG PSYCHIATRIC NURSE, ARGENIS R 706.1 ACNE 01/13/2011 FELIPE PSYCHIATRIC NURSE ARGENIS R V20.2 WELL CHILD 01/13/2011 WANG PSYCHIATRIC NURSE, ARGENIS R V25.09 CONTRACEPTIVE COUNSELING 01/13/2011 WANG PSYCHIATRIC NURSE, ARGENIS R V25.9 Gynecologic Services Contraceptive Management 01/13/2011 DARLING DO, MICHAEL K 706.1 ACNE 01/13/2011 DARLING DO, MICHAEL K V20.2 WELL CHILD 01/13/2011 DARLING DO, MICHAEL K V25.09 CONTRACEPTIVE COUNSELING 01/13/2011 DARLING DO, MICHAEL K V25.9 Gynecologic Services Contraceptive Management 01/13/2011 NADIR HERNANDEZ APRN A 706.1 ACNE 01/13/2011 DAVID PSYCHIATRIC NURSE, NADIR A V20.2 WELL CHILD 01/13/2011 DAVID PSYCHIATRIC NURSE, NADIR A V25.09 CONTRACEPTIVE COUNSELING 01/13/2011 DAVID PSYCHIATRIC NURSE, NADIR A V25.9 Gynecologic Services Contraceptive Management 01/13/2011 DAVID PSYCHIATRIC NURSE, NADIR A 706.1 ACNE 01/13/2011 DAVID PSYCHIATRIC NURSE, NADIR A V20.2 WELL CHILD 01/13/2011 DAVID PSYCHIATRIC NURSE, NADIR A V25.09 CONTRACEPTIVE COUNSELING 01/13/2011 DAVID PSYCHIATRIC NURSE, NADIR A V25.9 Gynecologic Services Contraceptive Management 01/13/2011 RAJLISEE PSYCHIATRIC NURSE, AYDEE A 706.1 ACNE 01/13/2011 RAJLISEE PSYCHIATRIC NURSE, AYDEE A V20.2 WELL CHILD 01/13/2011 RAJLISEE PSYCHIATRIC NURSE, AYDEE A V25.09 CONTRACEPTIVE COUNSELING 01/13/2011 ROSSIE PSYCHIATRIC NURSE, AYDEE A V25.9 Gynecologic Services Contraceptive Management 01/13/2011 [facility], PADMINI A 706.1 ACNE 01/13/2011 [facility], PADMINI A V20.2 WELL CHILD 01/13/2011 [facility], PADMINI A V25.09 CONTRACEPTIVE COUNSELING 01/13/2011 [facility], PADMINI A V25.9 Gynecologic Services Contraceptive Management 01/13/2011 SERENA PEREZ, AYDEE A 706.1 ACNE 01/13/2011 ROSSIE PSYCHIATRIC NURSE, AYDEE A V20.2 WELL CHILD 01/13/2011 SERENA MOSHERN, AYDEE A V25.09 CONTRACEPTIVE COUNSELING 01/13/2011 ROSSIE PSYCHIATRIC NURSE, AYDEE A V25.9 Gynecologic Services Contraceptive Management 01/13/2011 [facility], PADMINI A 706.1 ACNE 01/13/2011 [facility], PADMINI A V20.2 WELL CHILD 01/13/2011 [facility], PADMINI A V25.09 CONTRACEPTIVE COUNSELING 01/13/2011 [facility], PADMINI A V25.9 Gynecologic Services Contraceptive Management 01/13/2011 MICHAEL DARLING DO K 706.1 ACNE 01/13/2011 DARLING MICHAEL DELAROSA K V20.2 WELL CHILD 01/13/2011 MICHAEL DARLING DO V25.09 CONTRACEPTIVE COUNSELING 01/13/2011 DARLING DO, MICHAEL K V25.9 Gynecologic Services Contraceptive Management 01/13/2011 M[facility]SC[facility], PADMINI A 706.1 ACNE 01/13/2011 MCM[facility]SC[facility], PADMINI A V20.2 WELL CHILD 01/13/2011 [facility], PADMINI A V25.09 CONTRACEPTIVE COUNSELING 01/13/2011 [facility], PADMINI A V25.9 Gynecologic Services Contraceptive Management 01/13/2011 RAJOTTE PSYCHIATRIC NURSE, AYDEE A 706.1 ACNE 01/13/2011 RAJOTTE PSYCHIATRIC NURSE, AYDEE A V20.2 WELL CHILD 01/13/2011 RAJOTTE PSYCHIATRIC NURSE, AYDEE A V25.09 CONTRACEPTIVE COUNSELING 01/13/2011 RAJOTTE PSYCHIATRIC NURSE, AYDEE A V25.9 Gynecologic Services Contraceptive Management 01/13/2011 [facility], PADMINI A 706.1 ACNE 01/13/2011 [facility], PADMINI A V20.2 WELL CHILD 01/13/2011 [facility], PADMINI A V25.09 CONTRACEPTIVE COUNSELING 01/13/2011 [facility] A V25.9 Gynecologic Services Contraceptive Management 01/13/2011 EUGENIO DARLING DOA K 706.1 ACNE 01/13/2011 DARLING DO MICHAEL K V20.2 WELL CHILD 01/13/2011 DARLING EUGENIO DELAROSAA K V25.09 CONTRACEPTIVE COUNSELING 01/13/2011 DARLING EUGENIO DELAROSAA K V25.9 Gynecologic Services Contraceptive Management 01/13/2011 EUGENIO DARLING DOA K 706.1 ACNE 01/13/2011 DARLING DO MICHAEL K V20.2 WELL CHILD 01/13/2011 EUGENIO DARLING DOA K V25.09 CONTRACEPTIVE COUNSELING 01/13/2011 EUGENIO DARLING DOA K V25.9 Gynecologic Services Contraceptive Management 01/13/2011 EDWARDS LINNEA PEREZ 706.1 ACNE 01/13/2011 EDWARDS PSYCHIATRIC NURSE, LINNEA VALERA V20.2 WELL CHILD 01/13/2011 EDWARDS PSYCHIATRIC NURSE, LINNEA VALERA V25.09 CONTRACEPTIVE COUNSELING 01/13/2011 EDWARDS PSYCHIATRIC NURSE, LINNEA VALERA V25.9 Gynecologic Services Contraceptive Management 01/13/2011 DARLING DO MICHAEL K 706.1 ACNE 01/13/2011 DARLING DO MICHAEL K V20.2 WELL CHILD 01/13/2011 DARLING DO, MICHAEL K V25.09 CONTRACEPTIVE COUNSELING 01/13/2011 MICHAEL DARLING DO V25.9 Gynecologic Services Contraceptive Management 01/21/2011 Ot 462 01/21/2011 Ot 780.60 07/15/2011 MICHAEL DARLING DO 787.02 nausea 07/15/2011 MICHAEL DARLING DO V04.89 Vaccines Prophylactic Need Against Viral Diseases 07/15/2011 MICHAEL DARLING DO V25.49 Gynecologic Service Prescrip Of Contracept Agent - Repeat Rx 07/15/2011 MICHAEL DARLING DO V65.45 Anticipatory Guidance: Unsafe Sexual Practices 07/15/2011 MICHAEL DARLING DO V74.5 visit for: screening exam bact/spirochetal venereal disease 07/15/2011 MICHAEL DARLING DO 787.02 nausea 07/15/2011 MICHAEL DARLING DO V04.89 Vaccines Prophylactic Need Against Viral Diseases 07/15/2011 MICHAEL DARLING DO V25.49 Gynecologic Service Prescrip Of Contracept Agent - Repeat Rx 07/15/2011 MICHAEL DARLING DO V65.45 Anticipatory Guidance: Unsafe Sexual Practices 07/15/2011 MICHAEL DARLING DO V74.5 visit for: screening exam bact/spirochetal venereal disease 07/15/2011 MICHAEL DARLING DO 787.02 nausea 07/15/2011 MICHAEL DARLING DO V04.89 Vaccines Prophylactic Need Against Viral Diseases 07/15/2011 MICHAEL DARLING DO V25.49 Gynecologic Service Prescrip Of Contracept Agent - Repeat Rx 07/15/2011 MICHAEL DARLING DO V65.45 Anticipatory Guidance: Unsafe Sexual Practices 07/15/2011 MICHAEL DARILNG DO V74.5 visit for: screening exam bact/spirochetal venereal disease 07/15/2011 787.02 nausea 07/15/2011 V04.89 Vaccines Prophylactic Need Against Viral Diseases 07/15/2011 V25.49 Gynecologic Service Prescrip Of Contracept Agent - Repeat Rx 07/15/2011 V65.45 Anticipatory Guidance: Unsafe Sexual Practices 07/15/2011 V74.5 visit for: screening exam bact/spirochetal venereal disease 07/15/2011 787.02 nausea 07/15/2011 V04.89 Vaccines Prophylactic Need Against Viral Diseases 07/15/2011 V25.49 Gynecologic Service Prescrip Of Contracept Agent - Repeat Rx 07/15/2011 V65.45 Anticipatory Guidance: Unsafe Sexual Practices 07/15/2011 V74.5 visit for: screening exam bact/spirochetal venereal disease 07/15/2011 787.02 nausea 07/15/2011 V04.89 Vaccines Prophylactic Need Against Viral Diseases 07/15/2011 V25.49 Gynecologic Service Prescrip Of Contracept Agent - Repeat Rx 07/15/2011 V65.45 Anticipatory Guidance: Unsafe Sexual Practices 07/15/2011 V74.5 visit for: screening exam bact/spirochetal venereal disease 07/15/2011 787.02 nausea 07/15/2011 V04.89 Vaccines Prophylactic Need Against Viral Diseases 07/15/2011 V25.49 Gynecologic Service Prescrip Of Contracept Agent - Repeat Rx 07/15/2011 V65.45 Anticipatory Guidance: Unsafe Sexual Practices 07/15/2011 V74.5 visit for: screening exam bact/spirochetal venereal disease 07/15/2011 LINNEA EDWARDS APRN 787.02 nausea 07/15/2011 LINNEA EDWARDS APRN V04.89 Vaccines Prophylactic Need Against Viral Diseases 07/15/2011 LINNEA EDWARDS APRN V25.49 Gynecologic Service Prescrip Of Contracept Agent - Repeat Rx 07/15/2011 LINNEA EDWARDS APRN V65.45 Anticipatory Guidance: Unsafe Sexual Practices 07/15/2011 LINNEA EDWARDS APRN V74.5 visit for: screening exam bact/spirochetal venereal disease 07/15/2011 MICHAEL DARLING DO 787.02 nausea 07/15/2011 MICHAEL DARLING DO V04.89 Vaccines Prophylactic Need Against Viral Diseases 07/15/2011 MICHAEL DARLING DO V25.49 Gynecologic Service Prescrip Of Contracept Agent - Repeat Rx 07/15/2011 MICHAEL DARLING DO V65.45 Anticipatory Guidance: Unsafe Sexual Practices 07/15/2011 MICHAEL DARLING DO V74.5 visit for: screening exam bact/spirochetal venereal disease 07/15/2011 LINNEA EDWARDS APRN 787.02 nausea 07/15/2011 LINNEA EDWARDS APRN V04.89 Vaccines Prophylactic Need Against Viral Diseases 07/15/2011 LINNEA EDWARDS APRN V25.49 Gynecologic Service Prescrip Of Contracept Agent - Repeat Rx 07/15/2011 LINNEA EDWARDS APRN V65.45 Anticipatory Guidance: Unsafe Sexual Practices 07/15/2011 LINNEA EDWARDS APRN V74.5 visit for: screening exam bact/spirochetal venereal disease 07/15/2011 WHITE DDS, JUANITA D 787.02 nausea 07/15/2011 WHITE DDS, JUANITA D V04.89 Vaccines Prophylactic Need Against Viral Diseases 07/15/2011 WHITE DDS, JUANITA D V25.49 Gynecologic Service Prescrip Of Contracept Agent - Repeat Rx 07/15/2011 WHITE DDS, JUANITA D V65.45 Anticipatory Guidance: Unsafe Sexual Practices 07/15/2011 WHITE DDS, JUANITA D V74.5 visit for: screening exam bact/spirochetal venereal disease 07/15/2011 MICHAEL DARLING DO 787.02 nausea 07/15/2011 LISSET DELAROSA MICHAEL K V04.89 Vaccines Prophylactic Need Against Viral Diseases 07/15/2011 EUGENIO DARLING DOA Gerber V25.49 Gynecologic Service Prescrip Of Contracept Agent - Repeat Rx 07/15/2011 EUGENIO DARLING DOA Gerber V65.45 Anticipatory Guidance: Unsafe Sexual Practices 07/15/2011 EUGENIO DARLING DOA K V74.5 visit for: screening exam bact/spirochetal venereal disease 07/15/2011 ARGENIS WANG APRN R 787.02 nausea 07/15/2011 ARGENIS WANG APRN R V04.89 Vaccines Prophylactic Need Against Viral Diseases 07/15/2011 ARGENIS WANG APRN R V25.49 Gynecologic Service Prescrip Of Contracept Agent - Repeat Rx 07/15/2011 ARGENIS WANG APRN R V65.45 Anticipatory Guidance: Unsafe Sexual Practices 07/15/2011 ARGENIS WANG APRN R V74.5 visit for: screening exam bact/spirochetal venereal disease 07/15/2011 EUGENIO DARLING DOA K 787.02 nausea 07/15/2011 EUGENIO DARLING DOA K V04.89 Vaccines Prophylactic Need Against Viral Diseases 07/15/2011 LISSET DELAROSA MICHAEL K V25.49 Gynecologic Service Prescrip Of Contracept Agent - Repeat Rx 07/15/2011 EUGENIO DARLING DOA K V65.45 Anticipatory Guidance: Unsafe Sexual Practices 07/15/2011 MICHAEL DARLING DO V74.5 visit for: screening exam bact/spirochetal venereal disease 07/15/2011 ARGENIS WANG APRN R 787.02 nausea 07/15/2011 ARGENIS WANG APRN V04.89 Vaccines Prophylactic Need Against Viral Diseases 07/15/2011 ARGENIS WANG APRN V25.49 Gynecologic Service Prescrip Of Contracept Agent - Repeat Rx 07/15/2011 ARGENIS WANG APRN V65.45 Anticipatory Guidance: Unsafe Sexual Practices 07/15/2011 ARGENIS WANG APRN V74.5 visit for: screening exam bact/spirochetal venereal disease 07/15/2011 MICHAEL DARLING DO 787.02 nausea 07/15/2011 MICHAEL DARLING DO V04.89 Vaccines Prophylactic Need Against Viral Diseases 07/15/2011 MICHAEL DARLING DO V25.49 Gynecologic Service Prescrip Of Contracept Agent - Repeat Rx 07/15/2011 MICHAEL DARLING DO V65.45 Anticipatory Guidance: Unsafe Sexual Practices 07/15/2011 MICHAEL DARLING DO V74.5 visit for: screening exam bact/spirochetal venereal disease 07/15/2011 NADIR HERNANDEZ APRN 787.02 nausea 07/15/2011 NADIR HERNANDEZ APRN V04.89 Vaccines Prophylactic Need Against Viral Diseases 07/15/2011 NADIR HERNANDEZ APRN V25.49 Gynecologic Service Prescrip Of Contracept Agent - Repeat Rx 07/15/2011 NADIR HERNANDEZ APRN V65.45 Anticipatory Guidance: Unsafe Sexual Practices 07/15/2011 NADIR HERNANDEZ APRN V74.5 visit for: screening exam bact/spirochetal venereal disease 07/15/2011 NADIR HERNANDEZ APRN 787.02 nausea 07/15/2011 NADIR HERNANDEZ APRN V04.89 Vaccines Prophylactic Need Against Viral Diseases 07/15/2011 NADIR HERNANDEZ APRN V25.49 Gynecologic Service Prescrip Of Contracept Agent - Repeat Rx 07/15/2011 NADIR HERNANDEZ APRN V65.45 Anticipatory Guidance: Unsafe Sexual Practices 07/15/2011 NADIR HERNANDEZ APRN V74.5 visit for: screening exam bact/spirochetal venereal disease 07/15/2011 AYDEE LYONS APRN 787.02 nausea 07/15/2011 AYDEE LYONS APRN V04.89 Vaccines Prophylactic Need Against Viral Diseases 07/15/2011 AYDEE LYONS APRN V25.49 Gynecologic Service Prescrip Of Contracept Agent - Repeat Rx 07/15/2011 AYDEE LYONS APRN V65.45 Anticipatory Guidance: Unsafe Sexual Practices 07/15/2011 AYDEE LYONS APRN V74.5 visit for: screening exam bact/spirochetal venereal disease 07/15/2011 [facility] 07/15/2011 [facility] V04.89 Vaccines Prophylactic Need Against Viral Diseases 07/15/2011 [facility] V25.49 Gynecologic Service Prescrip Of Contracept Agent - Repeat Rx 07/15/2011 [facility] V[facility].45 Anticipatory Guidance: Unsafe Sexual Practices 07/15/2011 [facility] V[facility] visit for: screening exam bact/spirochetal venereal disease 07/15/2011 AYDEE LYONS APRN 787.02 nausea 07/15/2011 AYDEE LYONS APRN V04.89 Vaccines Prophylactic Need Against Viral Diseases 07/15/2011 AYDEE LYONS APRN V25.49 Gynecologic Service Prescrip Of Contracept Agent - Repeat Rx 07/15/2011 AYDEE LYONS APRN V65.45 Anticipatory Guidance: Unsafe Sexual Practices 07/15/2011 AYDEE LYONS APRN V74.5 visit for: screening exam bact/spirochetal venereal disease 07/15/2011 [facility] 787.02 nausea 07/15/2011 [facility] V04.89 Vaccines Prophylactic Need Against Viral Diseases 07/15/2011 [facility] V[facility] Gynecologic Service Prescrip Of Contracept Agent - Repeat Rx 07/15/2011 [facility] V65.45 Anticipatory Guidance: Unsafe Sexual Practices 07/15/2011 [facility] V[facility].5 visit for: screening exam bact/spirochetal venereal disease 07/15/2011 MICHAEL DARLING DO 787.02 nausea 07/15/2011 MICHAEL DARLING DO V04.89 Vaccines Prophylactic Need Against Viral Diseases 07/15/2011 MICHAEL DARLING DO V25.49 Gynecologic Service Prescrip Of Contracept Agent - Repeat Rx 07/15/2011 MICHAEL DARLING DO V65.45 Anticipatory Guidance: Unsafe Sexual Practices 07/15/2011 MICHAEL DARLING DO V74.5 visit for: screening exam bact/spirochetal venereal disease 07/15/2011 [facility] 787.02 NAUSEA 07/15/2011 [facility] V04.89 Vaccines Prophylactic Need Against Viral Diseases 07/15/2011 [facility] V25.49 GYNECOLOGIC SERVICE PRESCRIP OF CONTRACEPT AGENT - REPEAT RX 07/15/2011 [facility] V65.45 ANTICIPATORY GUIDANCE: UNSAFE SEXUAL PRACTICES 07/15/2011 [facility] V74.5 VISIT FOR: SCREENING EXAM BACT/SPIROCHETAL VENEREAL DISEASE 07/15/2011 AYDEE LYONS APRN 787.02 NAUSEA 07/15/2011 AYDEE LOYNS APRN V04.89 Vaccines Prophylactic Need Against Viral Diseases 07/15/2011 AYDEE LYONS APRN V25.49 GYNECOLOGIC SERVICE PRESCRIP OF CONTRACEPT AGENT - REPEAT RX 07/15/2011 AYDEE LYONS APRN V65.45 ANTICIPATORY GUIDANCE: UNSAFE SEXUAL PRACTICES 07/15/2011 AYDEE LYONS APRN V74.5 VISIT FOR: SCREENING EXAM BACT/SPIROCHETAL VENEREAL DISEASE 07/15/2011 [facility] 787.02 NAUSEA 07/15/2011 [facility] V04.89 Vaccines Prophylactic Need Against Viral Diseases 07/15/2011 [facility] V25.49 GYNECOLOGIC SERVICE PRESCRIP OF CONTRACEPT AGENT - REPEAT RX 07/15/2011 [facility] V65.45 ANTICIPATORY GUIDANCE: UNSAFE SEXUAL PRACTICES 07/15/2011 [facility] V74.5 VISIT FOR: SCREENING EXAM BACT/SPIROCHETAL VENEREAL DISEASE 07/15/2011 MICHAEL DARLING DO 787.02 NAUSEA 07/15/2011 MICHAEL DARLING DO V04.89 Vaccines Prophylactic Need Against Viral Diseases 07/15/2011 MICHAEL DARLING DO V25.49 GYNECOLOGIC SERVICE PRESCRIP OF CONTRACEPT AGENT - REPEAT RX 07/15/2011 MICHAEL DARLING DO V65.45 ANTICIPATORY GUIDANCE: UNSAFE SEXUAL PRACTICES 07/15/2011 MICHAEL DARLING DO V74.5 VISIT FOR: SCREENING EXAM BACT/SPIROCHETAL VENEREAL DISEASE 07/15/2011 MICHAEL DARLING DO 787.02 NAUSEA 07/15/2011 MICHAEL DARLING DO V04.89 Vaccines Prophylactic Need Against Viral Diseases 07/15/2011 MICHAEL DARLING DO V25.49 GYNECOLOGIC SERVICE PRESCRIP OF CONTRACEPT AGENT - REPEAT RX 07/15/2011 MICHAEL DARLING DO V65.45 ANTICIPATORY GUIDANCE: UNSAFE SEXUAL PRACTICES 07/15/2011 MICHAEL DARLING DO V74.5 VISIT FOR: SCREENING EXAM BACT/SPIROCHETAL VENEREAL DISEASE 07/15/2011 JERRY PEREZ LINNEA DAYH 787.02 NAUSEA 07/15/2011 JERRY PEREZ LINNEA SOTO V04.89 Vaccines Prophylactic Need Against Viral Diseases 07/15/2011 JERRY PEREZ LINNEA SOTO V25.49 GYNECOLOGIC SERVICE PRESCRIP OF CONTRACEPT AGENT - REPEAT RX 07/15/2011 JERRY PEREZ LINNEA SOTO V65.45 ANTICIPATORY GUIDANCE: UNSAFE SEXUAL PRACTICES 07/15/2011 JERRY PEREZ LINNEA SOTO V74.5 VISIT FOR: SCREENING EXAM BACT/SPIROCHETAL VENEREAL DISEASE 07/15/2011 MICHAEL DARLING DO 787.02 NAUSEA 07/15/2011 MICHAEL DARLING DO V04.89 Vaccines Prophylactic Need Against Viral Diseases 07/15/2011 MICHAEL DARLING DO V25.49 GYNECOLOGIC SERVICE PRESCRIP OF CONTRACEPT AGENT - REPEAT RX 07/15/2011 MICHAEL DARLING DO V65.45 ANTICIPATORY GUIDANCE: UNSAFE SEXUAL PRACTICES 07/15/2011 MICHAEL DARLING DO V74.5 VISIT FOR: SCREENING EXAM BACT/SPIROCHETAL VENEREAL DISEASE 03/25/2012 MICHAEL DARLING DO V72.41 TEST NEGATIVE RESULT 03/25/2012 MICHAEL DARLING DO V72.41 TEST NEGATIVE RESULT 03/25/2012 MICHAEL DARLING DO V72.41 TEST NEGATIVE RESULT 03/25/2012 V72.41 TEST NEGATIVE RESULT 03/25/2012 V72.41 TEST NEGATIVE RESULT 03/25/2012 V72.41 TEST NEGATIVE RESULT 03/25/2012 V72.41 TEST NEGATIVE RESULT 03/25/2012 LINNEA EDWARDS APRN V72.41 TEST NEGATIVE RESULT 03/25/2012 DARLING DO, MICHAEL K V72.41 TEST NEGATIVE RESULT 03/25/2012 LINNEA EDWARDS APRN V72.41 TEST NEGATIVE RESULT 03/25/2012 WHITE DDS, JUANITA Carlson V72.41 TEST NEGATIVE RESULT 03/25/2012 DARLING DO, MICHAEL K V72.41 TEST NEGATIVE RESULT 03/25/2012 SAÚL WANG APRNRICIA R V72.41 TEST NEGATIVE RESULT 03/25/2012 DARLING DO, MICHAEL K V72.41 TEST NEGATIVE RESULT 03/25/2012 FELIPE PEREZ ARGENIS R V72.41 TEST NEGATIVE RESULT 03/25/2012 DARLING DO, MICHAEL K V72.41 TEST NEGATIVE RESULT 03/25/2012 DAVID PSYCHIATRIC NURSE, NADIR A V72.41 TEST NEGATIVE RESULT 03/25/2012 DAVID PSYCHIATRIC NURSE, NADIR A V72.41 TEST NEGATIVE RESULT 03/25/2012 RAJLISEE PSYCHIATRIC NURSE, AYDEE A V72.41 TEST NEGATIVE RESULT 03/25/2012 [facility], PADMINI A V72.41 TEST NEGATIVE RESULT 03/25/2012 RAJLISEE PSYCHIATRIC NURSE, AYDEE A V72.41 TEST NEGATIVE RESULT 03/25/2012 [facility], PADMINI A V72.41 TEST NEGATIVE RESULT 03/25/2012 DARLING DO, MICHAEL K V72.41 TEST NEGATIVE RESULT 03/25/2012 [facility], PADMINI A V72.41 TEST NEGATIVE RESULT 03/25/2012 RAJLISEE PSYCHIATRIC NURSE, AYDEE A V72.41 TEST NEGATIVE RESULT 03/25/2012 [facility], PADMINI A V72.41 TEST NEGATIVE RESULT 03/25/2012 DARLING DO, MICHAEL K V72.41 TEST NEGATIVE RESULT 03/25/2012 DARLING DO, MICHAEL K V72.41 TEST NEGATIVE RESULT 03/25/2012 EDWARDS CHRISLINNEA V72.41 TEST NEGATIVE RESULT 03/25/2012 DARLING DO, MICHAEL K V72.41 TEST NEGATIVE RESULT 06/23/2012 DARLING DO, MICHAEL K 314.01 ADHD COMBINED 06/23/2012 DARLING DO, MICHAEL K 314.01 ADHD COMBINED 06/23/2012 DARLING DO, MICHAEL K 314.01 ADHD COMBINED 06/23/2012 314.01 ADHD COMBINED 06/23/2012 314.01 ADHD COMBINED 06/23/2012 314.01 ADHD COMBINED 06/23/2012 314.01 ADHD COMBINED 06/23/2012 EDWARDS PSYCHIATRIC NURSE LINNEA SOTO 314.01 ADHD COMBINED 06/23/2012 DARLING DO, MICHAEL K 314.01 ADHD COMBINED 06/23/2012 EDWARDS PSYCHIATRIC NURSE, LINNEA SOTO 314.01 ADHD COMBINED 06/23/2012 TIFFANIE DDS, JUANITA Carlson 314.01 ADHD COMBINED 06/23/2012 DARLING DO, MICHAEL K 314.01 ADHD COMBINED 06/23/2012 FELIPE PSYCHIATRIC NURSE, ARGENIS R 314.01 ADHD COMBINED 06/23/2012 DARLING DO, MICHAEL K 314.01 ADHD COMBINED 06/23/2012 WANG PSYCHIATRIC NURSE, ARGENIS R 314.01 ADHD COMBINED 06/23/2012 DARLING DO, MICHAEL K 314.01 ADHD COMBINED 06/23/2012 DAVID PSYCHIATRIC NURSE, NADIR A 314.01 ADHD COMBINED 06/23/2012 DAVID PSYCHIATRIC NURSE, NADIR A 314.01 ADHD COMBINED 06/23/2012 RAJLISEE PSYCHIATRIC NURSE, AYDEE A 314.01 ADHD COMBINED 06/23/2012 [facility], PADMINI A 314.01 ADHD COMBINED 06/23/2012 RAJLISEE PSYCHIATRIC NURSE, AYDEE A 314.01 ADHD COMBINED 06/23/2012 [facility], PADMINI A 314.01 ADHD COMBINED 06/23/2012 DARLING DO, MICHAEL K 314.01 ADHD COMBINED 06/23/2012 [facility], PADMINI A 314.01 ADHD COMBINED 06/23/2012 RAJLISEE PSYCHIATRIC NURSE, AYDEE A 314.01 ADHD COMBINED 06/23/2012 [facility], PADMINI A 314.01 ADHD COMBINED 06/23/2012 DARLING DO, MICHAEL K 314.01 ADHD COMBINED 06/23/2012 DARLING DO, MICHAEL K 314.01 ADHD COMBINED 06/23/2012 EDWARDS PSYCHIATRIC NURSE LINNEA SOTO 314.01 ADHD COMBINED 06/23/2012 DARLING DO, MICHAEL K 314.01 ADHD COMBINED 08/09/2012 DARLING DO, MICHAEL K 314.00 ADHD INATTENTIVE 08/09/2012 DARLING DO, MICHAEL K 314.00 ADHD INATTENTIVE 08/09/2012 DARLING DO, MICHAEL K 314.00 ADHD INATTENTIVE 08/09/2012 314.00 ADHD INATTENTIVE 08/09/2012 314.00 ADHD INATTENTIVE 08/09/2012 314.00 ADHD INATTENTIVE 08/09/2012 314.00 ADHD INATTENTIVE 08/09/2012 JERRY PSYCHIATRIC NURSE, LINNEA SOTO 314.00 ADHD INATTENTIVE 08/09/2012 DARLING DO, MICHAEL K 314.00 ADHD INATTENTIVE 08/09/2012 JERRY PSYCHIATRIC NURSE, LINNEA SOTO 314.00 ADHD INATTENTIVE 08/09/2012 TIFFANIE LUNASJUANITA 314.00 ADHD INATTENTIVE 08/09/2012 DARLING DO, MICHAEL K 314.00 ADHD INATTENTIVE 08/09/2012 FELIPE PSYCHIATRIC NURSE, ARGENIS R 314.00 ADHD INATTENTIVE 08/09/2012 DARLING DO, MICHAEL K 314.00 ADHD INATTENTIVE 08/09/2012 FELIPE PSYCHIATRIC NURSE, ARGENIS R 314.00 ADHD INATTENTIVE 08/09/2012 DARLING DO, MICHAEL K 314.00 ADHD INATTENTIVE 08/09/2012 DAVID PSYCHIATRIC NURSE, NADIR A 314.00 ADHD INATTENTIVE 08/09/2012 DAVID PSYCHIATRIC NURSE, NADIR A 314.00 ADHD INATTENTIVE 08/09/2012 RAJDREW PSYCHIATRIC NURSE, AYDEE A 314.00 ADHD INATTENTIVE 08/09/2012 [facility], PADMINI A 314.00 ADHD INATTENTIVE 08/09/2012 RAJLISEE PSYCHIATRIC NURSE, AYDEE A 314.00 ADHD INATTENTIVE 08/09/2012 [facility], PADMINI A 314.00 ADHD INATTENTIVE 08/09/2012 DARLING DO, MICHAEL K 314.00 ADHD INATTENTIVE 08/09/2012 [facility], PADMINI A 314.00 ADHD INATTENTIVE 08/09/2012 RAJLISEE PSYCHIATRIC NURSE, AYDEE A 314.00 ADHD INATTENTIVE 08/09/2012 [facility], PADMINI A 314.00 ADHD INATTENTIVE 08/09/2012 DARLING DO, MICHAEL K 314.00 ADHD INATTENTIVE 08/09/2012 DARLING DO, MICHAEL K 314.00 ADHD INATTENTIVE 08/09/2012 EDWARDSLINNEA MARKS APRN 314.00 ADHD INATTENTIVE 08/09/2012 DARLING , MICHAEL Mayes 314.00 ADHD INATTENTIVE 07/07/2013 V25.02 CONTRACEPTION - ANY METHOD 07/07/2013 V25.02 CONTRACEPTION - ANY METHOD 07/07/2013 JERRY PEREZ LINNEA SOTO V25.02 CONTRACEPTION - ANY METHOD 07/07/2013 LISSET DELAROSA, MICHAEL K V25.02 CONTRACEPTION - ANY METHOD 07/07/2013 JERRY PEREZ LINNEA SOTO V25.02 CONTRACEPTION - ANY METHOD 07/07/2013 TIFFANIE DDS, JUANITA Carlson V25.02 CONTRACEPTION - ANY METHOD 07/07/2013 DARLING DO, MICHAEL K V25.02 CONTRACEPTION - ANY METHOD 07/07/2013 ARGENIS WANG APRN R V25.02 CONTRACEPTION - ANY METHOD 07/07/2013 DARLING DO, MICHAEL K V25.02 CONTRACEPTION - ANY METHOD 07/07/2013 ARGENIS WANG APRN R V25.02 CONTRACEPTION - ANY METHOD 07/07/2013 EUGENIO DARLING DOA K V25.02 CONTRACEPTION - ANY METHOD 07/07/2013 DAVID PEREZ NADIR A V25.02 CONTRACEPTION - ANY METHOD 07/07/2013 DAVID PEREZ NADIR A V25.02 CONTRACEPTION - ANY METHOD 07/07/2013 SERENA PEREZ AYDEE A V25.02 CONTRACEPTION - ANY METHOD 07/07/2013 [facility], PADMINI A V25.02 CONTRACEPTION - ANY METHOD 07/07/2013 SERENA PEREZ AYDEE A V25.02 CONTRACEPTION - ANY METHOD 07/07/2013 [facility], PADMINI A V25.02 CONTRACEPTION - ANY METHOD 07/07/2013 LISSET DELAROSA, MICHAEL K V25.02 CONTRACEPTION - ANY METHOD 07/07/2013 [facility], PADMINI A V25.02 CONTRACEPTION - ANY METHOD 07/07/2013 SERENA PEREZ AYDEE A V25.02 CONTRACEPTION - ANY METHOD 07/07/2013 [facility], PADMINI A V25.02 CONTRACEPTION - ANY METHOD 07/07/2013 LISSET DELAROSA, MICHAEL K V25.02 CONTRACEPTION - ANY METHOD 07/07/2013 DARLING , MICHAEL K V25.02 CONTRACEPTION - ANY METHOD 07/07/2013 LINNEA EDWARDS APRN V25.02 CONTRACEPTION - ANY METHOD 07/07/2013 DARLING DO, MICHAEL K V25.02 CONTRACEPTION - ANY METHOD 07/12/2013 V58.69 MEDICATION HIGH RISK 07/12/2013 EDWARDSCHALO PEREZ LINNEA VALERA V58.69 MEDICATION HIGH RISK 07/12/2013 DARLING DO, MICHAEL K V58.69 MEDICATION HIGH RISK 07/12/2013 JERRY MOSHERNLINNEA V58.69 MEDICATION HIGH RISK 07/12/2013 WHITE DDS, JUANITA Carlson V58.69 MEDICATION HIGH RISK 07/12/2013 DARLING DO, MICHAEL K V58.69 MEDICATION HIGH RISK 07/12/2013 FELIPE PSYCHIATRIC NURSE, ARGENIS R V58.69 MEDICATION HIGH RISK 07/12/2013 DARLING DO, MICHAEL K V58.69 MEDICATION HIGH RISK 07/12/2013 FELIPE PSYCHIATRIC NURSE, ARGENIS R V58.69 MEDICATION HIGH RISK 07/12/2013 DARLING DO, MICHAEL K V58.69 MEDICATION HIGH RISK 07/12/2013 DAVID APRN, NADIR A V58.69 MEDICATION HIGH RISK 07/12/2013 DAVID PSYCHIATRIC NURSE, NADIR A V58.69 MEDICATION HIGH RISK 07/12/2013 RAJLISEE PSYCHIATRIC NURSE, AYDEE A V58.69 MEDICATION HIGH RISK 07/12/2013 [facility], PADMINI A V58.69 MEDICATION HIGH RISK 07/12/2013 RAJLISEE PSYCHIATRIC NURSE, AYDEE A V58.69 MEDICATION HIGH RISK 07/12/2013 [facility], PADMINI A V58.69 MEDICATION HIGH RISK 07/12/2013 DARLING DO, MICHAEL K V58.69 MEDICATION HIGH RISK 07/12/2013 [facility], PADMINI A V58.69 MEDICATION HIGH RISK 07/12/2013 RAJLISEE PSYCHIATRIC NURSE, AYDEE A V58.69 MEDICATION HIGH RISK 07/12/2013 [facility], PADMINI A V58.69 MEDICATION HIGH RISK 07/12/2013 DARLING DO, MICHAEL K V58.69 MEDICATION HIGH RISK 07/12/2013 DARLING DO, MICHAEL K V58.69 MEDICATION HIGH RISK 07/12/2013 EDWARDSCHALO PEREZ LINNEA VALERA V58.69 MEDICATION HIGH RISK 07/12/2013 DARLING DO, MICHAEL K V58.69 MEDICATION HIGH RISK 08/25/2013 JERRY PEREZ, LINNEA VALERA 477.0 ALLERGIC RHINITIS DUE TO POLLEN 08/25/2013 DARLING DO, MICHAEL K 477.0 ALLERGIC RHINITIS DUE TO POLLEN 08/25/2013 EDWARDS PSYCHIATRIC NURSE, LINNEA VALERA 477.0 ALLERGIC RHINITIS DUE TO POLLEN 08/25/2013 WHITE DDS, JUANITA D 477.0 ALLERGIC RHINITIS DUE TO POLLEN 08/25/2013 DARLING DO, MICHAEL K 477.0 ALLERGIC RHINITIS DUE TO POLLEN 08/25/2013 WANG PSYCHIATRIC NURSE, ARGENIS R 477.0 ALLERGIC RHINITIS DUE TO POLLEN 08/25/2013 DARLING DO, MICHAEL K 477.0 ALLERGIC RHINITIS DUE TO POLLEN 08/25/2013 WANG PSYCHIATRIC NURSE, ARGENIS R 477.0 ALLERGIC RHINITIS DUE TO POLLEN 08/25/2013 DARLING DO, MICHAEL K 477.0 ALLERGIC RHINITIS DUE TO POLLEN 08/25/2013 DAVID PSYCHIATRIC NURSE, NADIR A 477.0 ALLERGIC RHINITIS DUE TO POLLEN 08/25/2013 DAVID PSYCHIATRIC NURSE, NADIR A 477.0 ALLERGIC RHINITIS DUE TO POLLEN 08/25/2013 RAJOTTE PSYCHIATRIC NURSE, AYDEE A 477.0 ALLERGIC RHINITIS DUE TO POLLEN 08/25/2013 [facility], PADMINI A 477.0 ALLERGIC RHINITIS DUE TO POLLEN 08/25/2013 RAJOTTE PSYCHIATRIC NURSE, AYDEE A 477.0 ALLERGIC RHINITIS DUE TO POLLEN 08/25/2013 [facility], PADMINI A 477.0 ALLERGIC RHINITIS DUE TO POLLEN 08/25/2013 DARLING DO, MICHAEL K 477.0 ALLERGIC RHINITIS DUE TO POLLEN 08/25/2013 [facility], PADMINI A 477.0 ALLERGIC RHINITIS DUE TO POLLEN 08/25/2013 RAJOTTE PSYCHIATRIC NURSE, AYDEE A 477.0 ALLERGIC RHINITIS DUE TO POLLEN 08/25/2013 [facility], PADMINI A 477.0 ALLERGIC RHINITIS DUE TO POLLEN 08/25/2013 DARLING DO, MICHAEL K 477.0 ALLERGIC RHINITIS DUE TO POLLEN 08/25/2013 DARLING DO, MICHAEL K 477.0 ALLERGIC RHINITIS DUE TO POLLEN 08/25/2013 EDWARDS PSYCHIATRIC NURSE, LINNEA DAYH 477.0 ALLERGIC RHINITIS DUE TO POLLEN 08/25/2013 DARLING DO, MICHAEL K 477.0 ALLERGIC RHINITIS DUE TO POLLEN 09/05/2013 EDWARDS PSYCHIATRIC NURSE, LINNEA SOTO 305.20 CANNABIS ABUSE 09/05/2013 DARLING DO, MICHAEL K 305.20 CANNABIS ABUSE 09/05/2013 EDWARDS PSYCHIATRIC NURSE LINNEA SOTO 305.20 CANNABIS ABUSE 09/05/2013 WHITE DDS, JUANITA D 305.20 CANNABIS ABUSE 09/05/2013 DARLING DO, MICHAEL K 305.20 CANNABIS ABUSE 09/05/2013 WANG PSYCHIATRIC NURSE, ARGENIS R 305.20 CANNABIS ABUSE 09/05/2013 DARLING DO, MICHAEL K 305.20 CANNABIS ABUSE 09/05/2013 WANG PSYCHIATRIC NURSE, ARGENIS R 305.20 CANNABIS ABUSE 09/05/2013 DARLING DO, MICHAEL K 305.20 CANNABIS ABUSE 09/05/2013 DAVID PSYCHIATRIC NURSE, NADIR A 305.20 CANNABIS ABUSE 09/05/2013 DAVID PSYCHIATRIC NURSE, NADIR A 305.20 CANNABIS ABUSE 09/05/2013 RAJOTTE PSYCHIATRIC NURSE, AYDEE A 305.20 CANNABIS ABUSE 09/05/2013 [facility], PADMINI A 305.20 CANNABIS ABUSE 09/05/2013 RAJOTTE PSYCHIATRIC NURSE, AYDEE A 305.20 CANNABIS ABUSE 09/05/2013 [facility], PADMINI A 305.20 CANNABIS ABUSE 09/05/2013 DARLING DO, MICHAEL K 305.20 CANNABIS ABUSE 09/05/2013 [facility], PADMINI A 305.20 CANNABIS ABUSE 09/05/2013 RAJOTTE PSYCHIATRIC NURSE, AYDEE A 305.20 CANNABIS ABUSE 09/05/2013 [facility], PADMINI A 305.20 CANNABIS ABUSE 09/05/2013 DARLING DO, MICHAEL K 305.20 CANNABIS ABUSE 09/05/2013 DARLING DO, MICHAEL K 305.20 CANNABIS ABUSE 09/05/2013 EDWARDS PSYCHIATRIC NURSE, LINNEA SOTO 305.20 CANNABIS ABUSE 09/05/2013 DARLING DO, MICHAEL K 305.20 CANNABIS ABUSE 09/06/2013 DARLING DO, MICHAEL K 461.9 SINUSITIS ACUTE 09/06/2013 DARLING DO, MICHAEL K 462 ACUTE PHARYNGITIS 09/06/2013 JERRY PSYCHIATRIC NURSELINNEA Serra 461.9 SINUSITIS ACUTE 09/06/2013 EDWARDS PSYCHIATRIC NURSELINNEA 462 ACUTE PHARYNGITIS 09/06/2013 WHITE DDS, JUANITA D 461.9 SINUSITIS ACUTE 09/06/2013 WHITE DDS, JUANITA D 462 ACUTE PHARYNGITIS 09/06/2013 DARLING DO, MICHAEL K 461.9 SINUSITIS ACUTE 09/06/2013 DARLING DO, MICHAEL K 462 ACUTE PHARYNGITIS 09/06/2013 WANG PSYCHIATRIC NURSE, ARGENIS R 461.9 SINUSITIS ACUTE 09/06/2013 WANG PSYCHIATRIC NURSE, ARGENIS R 462 ACUTE PHARYNGITIS 09/06/2013 DARLING DO, MICHAEL K 461.9 SINUSITIS ACUTE 09/06/2013 DARLING DO, MICHAEL K 462 ACUTE PHARYNGITIS 09/06/2013 WANG PSYCHIATRIC NURSE, ARGENIS R 461.9 SINUSITIS ACUTE 09/06/2013 WANG PSYCHIATRIC NURSE, ARGENIS R 462 ACUTE PHARYNGITIS 09/06/2013 DARLING DO, MICHAEL K 461.9 SINUSITIS ACUTE 09/06/2013 DARLING DO, MICHAEL K 462 ACUTE PHARYNGITIS 09/06/2013 DAVID PSYCHIATRIC NURSE, NADIR A 461.9 SINUSITIS ACUTE 09/06/2013 DAVID PSYCHIATRIC NURSE, NADIR A 462 ACUTE PHARYNGITIS 09/06/2013 DAVID PSYCHIATRIC NURSE, NADIR A 461.9 SINUSITIS ACUTE 09/06/2013 DAVID PSYCHIATRIC NURSE, NADIR A 462 ACUTE PHARYNGITIS 09/06/2013 RAJOTTE PSYCHIATRIC NURSE, AYDEE A 461.9 SINUSITIS ACUTE 09/06/2013 RAJOTTE PSYCHIATRIC NURSE, AYDEE A 462 ACUTE PHARYNGITIS 09/06/2013 [facility], PADMINI A 461.9 SINUSITIS ACUTE 09/06/2013 [facility], PADMINI A 462 ACUTE PHARYNGITIS 09/06/2013 RAJOTTE PSYCHIATRIC NURSE, AYDEE A 461.9 SINUSITIS ACUTE 09/06/2013 RAJOTTE PSYCHIATRIC NURSE, AYDEE A 462 ACUTE PHARYNGITIS 09/06/2013 [facility], PADMINI A 461.9 SINUSITIS ACUTE 09/06/2013 [facility], PADMINI A 462 ACUTE PHARYNGITIS 09/06/2013 DARLING DO, MICHAEL K 461.9 SINUSITIS ACUTE 09/06/2013 DARLING DO, MICHAEL K 462 ACUTE PHARYNGITIS 09/06/2013 [facility], PADMINI A 461.9 SINUSITIS ACUTE 09/06/2013 [facility], PADMINI A 462 ACUTE PHARYNGITIS 09/06/2013 RAJOTTE PSYCHIATRIC NURSE, AYDEE A 461.9 SINUSITIS ACUTE 09/06/2013 RAJOTTE PSYCHIATRIC NURSE, AYDEE A 462 ACUTE PHARYNGITIS 09/06/2013 [facility], PADMINI A 461.9 SINUSITIS ACUTE 09/06/2013 MCMILLAN [facility], PADMINI A 462 ACUTE PHARYNGITIS 09/06/2013 DARLING DO, MICHAEL K 461.9 SINUSITIS ACUTE 09/06/2013 DARLING DO, MICHAEL K 462 ACUTE PHARYNGITIS 09/06/2013 DARLING DO, MICHAEL K 461.9 SINUSITIS ACUTE 09/06/2013 DARLING DO, MICHAEL K 462 ACUTE PHARYNGITIS 09/06/2013 EDWARDSCHALO PEREZ LINNEA VALERA 461.9 SINUSITIS ACUTE 09/06/2013 EDWARDS PSYCHIATRIC NURSE, LINNEA VALERA 462 ACUTE PHARYNGITIS 09/06/2013 DARLING DO, MICHAEL K 461.9 SINUSITIS ACUTE 09/06/2013 DARLING DO, MICHAEL K 462 ACUTE PHARYNGITIS 09/28/2013 WANG PSYCHIATRIC NURSE, ARGENIS R 786.2 COUGH 09/28/2013 DARLING DO, MICHAEL K 786.2 COUGH 09/28/2013 WANG PSYCHIATRIC NURSE, ARGENIS R 786.2 COUGH 09/28/2013 DARLING DO, MICHAEL K 786.2 COUGH 09/28/2013 DAVID PSYCHIATRIC NURSE, NADIR A 786.2 COUGH 09/28/2013 DAVID PSYCHIATRIC NURSE, NADIR A 786.2 COUGH 09/28/2013 RAJOTTE PSYCHIATRIC NURSE, AYDEE A 786.2 COUGH 09/28/2013 [facility], PADMINI A 786.2 COUGH 09/28/2013 RAJOTTE PSYCHIATRIC NURSE, AYDEE A 786.2 COUGH 09/28/2013 [facility], PADMINI A 786.2 COUGH 09/28/2013 DARLING DO, MICHAEL K 786.2 COUGH 09/28/2013 [facility], PADMINI A 786.2 COUGH 09/28/2013 RAJOTTE PSYCHIATRIC NURSE, AYDEE A 786.2 COUGH 09/28/2013 [facility], PADMINI A 786.2 COUGH 09/28/2013 DARLING DO, MICHAEL K 786.2 COUGH 09/28/2013 DARLING DO, MICHAEL K 786.2 COUGH 09/28/2013 EDWARDS PSYCHIATRIC NURSE, LINNEA VALERA 786.2 COUGH 09/28/2013 DARLING MICHAEL DELAROSA 786.2 COUGH 01/18/2014 RAJLISEE PSYCHIATRIC NURSE, AYDEE A 079.99 VIRAL SYNDROME 01/18/2014 [facility], PADMINI A 079.99 VIRAL SYNDROME 01/18/2014 RAJLISEE PSYCHIATRIC NURSE, AYDEE A 079.99 VIRAL SYNDROME 01/18/2014 [facility], PADMINI A 079.99 VIRAL SYNDROME 01/18/2014 DARLING DO, MICHAEL K 079.99 VIRAL SYNDROME 01/18/2014 [facility], PADMINI A 079.99 VIRAL SYNDROME 01/18/2014 RAJLISEE PSYCHIATRIC NURSE, AYDEE A 079.99 VIRAL SYNDROME 01/18/2014 [facility], PADMINI A 079.99 VIRAL SYNDROME 01/18/2014 DARLING DO, MICHAEL K 079.99 VIRAL SYNDROME 01/18/2014 DARLING DO, MICHAEL K 079.99 VIRAL SYNDROME 01/18/2014 LINNEA EDWARDS APRN 079.99 VIRAL SYNDROME 01/18/2014 DARLING , MICHAEL K 079.99 VIRAL SYNDROME 02/08/2014 [facility], PADMINI A V03.89 MENINGOCOCCAL DX 02/08/2014 DARLIGN DOMICHAEL K V03.89 MENINGOCOCCAL DX 02/08/2014 [facility], PADMINI A V03.89 MENINGOCOCCAL DX 02/08/2014 AYDEE LYONS APRN A V03.89 MENINGOCOCCAL DX 02/08/2014 [facility], PADMINI A V03.89 MENINGOCOCCAL DX 02/08/2014 MICHAEL DARLING DO V03.89 MENINGOCOCCAL DX 02/08/2014 DARLING MICHAEL DELAROSA V03.89 MENINGOCOCCAL DX 02/08/2014 LINNEA EDWARDS APRN V03.89 MENINGOCOCCAL DX 02/08/2014 DARLING EUGENIO DELAROSAA K V03.89 MENINGOCOCCAL DX 02/13/2014 [facility], PADMINI Lainez 311 DEPRESSIVE DISORDER NOS 02/13/2014 MICHAEL DARLING DO 311 DEPRESSIVE DISORDER NOS 02/13/2014 [facility], PAD[facility] A 311 DEPRESSIVE DISORDER NOS 02/13/2014 SERENA PEREZ AYDEE A 311 DEPRESSIVE DISORDER NOS 02/13/2014 [facility], PAD[facility]I Lainez 311 DEPRESSIVE DISORDER NOS 02/13/2014 DARLING DO, MICHAEL K 311 DEPRESSIVE DISORDER NOS 02/13/2014 LISSET DELAROSA, MICHAEL K 311 DEPRESSIVE DISORDER NOS 02/13/2014 LINNEA EDWARDS APRN 311 DEPRESSIVE DISORDER NOS 02/13/2014 DARLING DO, MICHAEL K 311 DEPRESSIVE DISORDER NOS 03/06/2014 DARLING DO, MICHAEL K 784.0 HEADACHE 03/06/2014 [facility], PADMINI A 784.0 HEADACHE 03/06/2014 RAJLISEE CHRIS, AYDEE A 784.0 HEADACHE 03/06/2014 [facility], PADMINI A 784.0 HEADACHE 03/06/2014 DARLING DO, MICHAEL K 784.0 HEADACHE 03/06/2014 DARLING DO, MICHAEL K 784.0 HEADACHE 03/06/2014 LINNEA EDWARDS APRN 784.0 HEADACHE 03/06/2014 DARLING DO, MICHAEL K 784.0 HEADACHE 03/27/2014 SERENA EPREZ, AYDEE A 787.91 DIARRHEA 03/27/2014 [facility], PAD[facility] A 787.91 DIARRHEA 03/27/2014 DARLING , MICHAEL K 787.91 DIARRHEA 03/27/2014 DARLING DO, MICHAEL K 787.91 DIARRHEA 03/27/2014 JERRY PEREZ LINNEA SOTO 787.91 DIARRHEA 03/27/2014 DARLING DO, MICHAEL K 787.91 DIARRHEA 04/06/2014 DARLING DOEUGENIOA K V25.49 CONTRACEPTION SURVEILLANCE (REPEAT RX) 04/06/2014 DARLING MICHAEL DELAROSA K V25.49 CONTRACEPTION SURVEILLANCE (REPEAT RX) 04/06/2014 LINNEA EDWARDS APRN V25.49 CONTRACEPTION SURVEILLANCE (REPEAT RX) 04/06/2014 DARLING MICHAEL DELAROSA K V25.49 CONTRACEPTION SURVEILLANCE (REPEAT RX) 03/17/2015 GARY THORNTON APRN Ot 824.2 03/17/2015 GARY THORNTON APRN Ot 959.7 03/17/2015 GARY THORNTON APRN Ot E000.8 03/17/2015 GARY THORNTON APRN Ot E880.9 09/17/2016 Final R07.0 Pain in throat 09/17/2016 Final R59.1 Generalized enlarged lymph nodes 10/01/2016 Kassie Parada Final J03.90 Acute tonsillitis, unspecified 10/01/2016 Kassie Parada Admitting R07.0 Pain in throat 09/17/2017 Blake Canales Final O21.9 Vomiting of , unspecified 09/17/2017 ParkerBlake guerrero Final Z3A.01 Less than 8 weeks gestation of 09/22/2017 Driss Jasso Z34.90 Encounter for supervision of normal , unspecified, 09/22/2017 Driss Jasso Z34.90 Encounter for supervision of normal , unspecified, 02/17/2018 Driss Jasso Z11.3 Encounter for screening for infections with a predominantly 02/17/2018 Driss Jasso Z34.02 Encounter for supervision of normal first , second 03/03/2018 Driss Jasso R73.9 Hyperglycemia, unspecified 04/06/2018 Driss Jasso Z36.85 Encounter for screening for Streptococcus B 04/27/2018 Driss Jasso O47.9 False labor, unspecified 04/29/2018 ABENA PORTER P O623 Precipitate labor 04/29/2018 ABENA PORTER [id number] Labor and delivery complicated by cord around neck, without compression, not applicable or unspecified 04/29/2018 ABENA PORTER O7182 Other specified trauma to perineum and vulva 04/29/2018 ABENA PORTER Z370 Single live 04/29/2018 ABENA PORTER Z3A39 39 weeks gestation of 07/05/2018 Driss Jasso Z20.2 Contact with and (suspected) exposure to infections with a p 07/05/2018 Driss Jasso Final Z20.2 Contact with and (suspected) exposure to infections with a p 10/05/2018 Shania Ji Final Z11.3 Encounter for screening for infections with a predominantly Procedures Code Description Performed By Performed On J1055 DEPO-PROVERA INJ 150 MG 11/22/2012 55421 URINE TEST (IN- HOUSE) 11/22/2012 94437 URINE TEST (IN- HOUSE) 02/10/2013 J1050 DEPO PROVERA 02/10/2013 24380 THERAPUTIC INJ SQ/IM 02/10/2013 06673 URINE DRUG SCREEN (IN-HOUSE ) 05/03/2013 51324 URINE TEST (IN- HOUSE) 07/07/2013 J1050 DEPO PROVERA 07/07/2013 21995 THERAPUTIC INJ SQ/IM 07/07/2013 00242 URINE DRUG SCREEN (IN-HOUSE ) 07/12/2013 96392 URINE DRUG SCREEN (IN-HOUSE ) 09/05/2013 91846 URINE TEST (IN- HOUSE) 09/26/2013 51351 URINE TEST (IN- HOUSE) 09/26/2013 J1050 DEPO PROVERA 09/26/2013 J1050 DEPO PROVERA 09/26/2013 29116 THERAPUTIC INJ SQ/IM 09/26/2013 44609 THERAPUTIC INJ SQ/IM 09/26/2013 48228 STREP A (IN-HOUSE) 09/28/2013 07541 URINE DRUG SCREEN (IN-HOUSE ) 12/06/2013 62750 TEST, URINE (IN- HOUSE) 12/22/2013 J1050 DEPO PROVERA 12/22/2013 51452 THERAPUTIC INJ SQ/IM 12/22/2013 92893 GC/CHLAM URINE (STATE) 12/22/2013 08002 PSYCH DIAGNOSTIC EVALUATION 02/08/2014 58018 PSYTX PT&/FAMILY 30 MINUTES 02/16/2014 32071 PSYTX PT&/FAMILY 30 MINUTES 03/16/2014 78566 PSYTX PT&/FAMILY 30 MINUTES 03/30/2014 69842 TEST, URINE (IN- HOUSE) 04/06/2014 J1050 DEPO PROVERA 04/06/2014 16503 TEST, URINE (IN- HOUSE) 07/03/2014 26589 THERAPUTIC INJ SQ/IM 07/03/2014 J1050 DEPO PROVERA 07/03/2014 79903 Emergency department visit for the evalu GERARD RUDD 09/17/2016 46702 Intravenous infusion, hydration; each GERARD Jones 10/01/2016 92564 Therapeutic, prophylactic, or diagnostic GERARD RUDD 10/01/2016 86932 Therapeutic, prophylactic, or diagnostic GERARD RUDD 10/01/2016 93106 Emergency department visit for the evalu GERARD RUDD 10/01/2016 91709 Intravenous infusion, hydration; each ad GERARD RUDD 09/17/2017 30695 Therapeutic, prophylactic, or diagnostic GERARD RUDD 09/17/2017 62140 Emergency department visit for the evalu GERARD RUDD 09/17/2017 [id number] Repair Vulva, External Approach 04/29/2018 [id number] Delivery of Products of Conception, External Approach 04/29/2018 Results Test Result Range COMPREHENSIVE METABOLIC PANEL - 10/01/16 17:06 Sodium 137 mmol/L 135-145 Potassium 3.9 mmol/L 3.6-5.0 Chloride 97 mmol/L 101-111 Carbon Dioxide, Total 26 mmol/L 21-31 Glucose Level 103 mg/dL 70-100 BUN 5 mg/dL 6-20 Creatinine 0.6 mg/dL 0.5-1.2 Calcium 9.7 mg/dL 8.5-10.5 Total Protein 8.0 g/dL 6.0-8.0 Albumin 4.5 g/dL 3.2-5.5 Alkaline Phosphatase 53 U/L 42-121 AST (SGOT) 12 U/L 10-42 ALT (SGPT) 8 U/L 10-60 Total Bilirubin 0.7 mg/dL 0.2-1.0 Calculated GFR >60.0 mL/min/1.73sq >60 Anion Gap 14 mmol/L NRG Surgical Pathology - 11/03/16 12:19 SURGICALPATH Microscopic examination is performed and supports the diagnosis. NRG BETA-HCG, QUANTITATIVE - 09/17/17 16:20 BHCG 34255 mIU/mL NRG URINALYSIS, CULTURE IF INDICATED - 09/17/17 17:35 Color, UA YELLOW YELL Clarity, Urine CLEAR Clear Glucose, Urine NEGATIVE mg/dL NEG Bilirubin, UA NEGATIVE NEG Ketones, UA >150 mg/dL NEG Specific Bern, UA 1.028 1.003-1.030 Blood, UA NEGATIVE NEG pH, UA 6.5 5.0-9.0 Protein, UA 30 mg/dL NEG Urobilinogen, UA NORMAL mg/dL NORM Nitrites, UA NEGATIVE NEG Leukocyte Esterase, UA NEGATIVE NEG WBC's, UA 0-5 /hpf OFIVE RBC, UA 0-5 /hpf OFIVE Bacteria, UA FEW /hpf NEG Squamous Epithelials, UA MODERATE /hpf NEGFEW Hyaline Casts 5 to 10 /lpf NEG Urine Culture Indicated NO CULTURE NEEDED NOCULT Specimen Description URINE NRG CHLAMYDIA GC BY PCR - 09/22/17 15:10 Media Type VAGINAL/ENDOCERVICAL NRG C. Trachomatis Amplified NEGATIVE NEG N. Gonorrhoeae Amplified NEGATIVE NEG URINE CULTURE - 09/22/17 15:10 Specimen Description URINE NRG Special Requests ROUT+ NRG Culture NO GROWTH 2 DAYS NRG Report Status FINAL 09/24/2017 NRG Organism NG2 NRG CERVICAL/VAG CULT - 09/22/17 15:10 Specimen Description VAGINAL/ENDOCERVICAL NRG Special Requests ROUT+ NRG Gram Stain MODERATE GRAM POSITIVE BACILLI NRG Culture NEGATIVE FOR N. GONORRHOEAE, S. AUREUS, GROUP B STREP, YEAST NRG Report Status FINAL 09/25/2017 NRG Organism CXFL NRG HIV 1/2 AG/AB REFLEX - 09/22/17 16:50 P24 ANTIGEN, HIV 1 NEGATIVE NEG HIV 1/2 ANTIBODY NEGATIVE NEG TYPE/SCREEN NO TRANSFUSE - 09/22/17 16:50 ABO/Rh A POS NRG Antibody Screen NEG NRG HEPATITIS B SURFACE AG - 09/22/17 16:50 Hepatitis B Surface Ag NEGATIVE NEG RUBELLA QUANTITATIVE - 09/22/17 16:50 Rubella 109.9 IU/mL 10-501 SYPHILIS (TP) AB - 09/22/17 16:50 SYPHILIS (TP) TOTAL AB NON REACTIVE NR GEST. DIABETES, SCREEN - 02/17/18 12:45 GDS1 175 mg/dL 90-140 DTIME 1144 NRG SYPHILIS (TP) AB - 02/17/18 12:45 SYPHILIS (TP) TOTAL AB NON REACTIVE NR GEST. DIABETES, DIAGNOSTIC - 03/03/18 09:29 GDD0 87 mg/dL 70-92 GDD1 163 mg/dL 70-180 GDD2 108 mg/dL 70-153 GDD3 57 mg/dL 70-135 DTIME 0946 NRG GLUADM 100 gm NRG GROUP B STREP SCREEN (NOT THROAT) - 04/06/18 11:40 Specimen Description VAGINAL/RECTAL NRG Special Requests ROUT+ NRG Culture NEGATIVE FOR GROUP B STREP NRG Report Status FINAL 04/09/2018 NRG Organism NGB NRG Pathology Report - 04/27/18 00:01 . Comment . Comment . Comment . Comment . Comment . Comment CBCD (AUTO DIFF) - 04/27/18 20:33 WBC 17.1 x10 3UL 4.0 - 10.0 NEUTROPHIL % 69.9 % 30.0 - 75.0 LYMPHOCYTES % 20.4 % 18.0 - 40.0 MONOCYTES % 8.3 % 1.0 - 8.0 EOSINOPHILS % 0.4 % 0.0 - 3.0 BASOPHILS % 0.2 % 0.0 - 2.0 IMMAT GRAN % 0.8 % 0.0 - 1.0 RBC 3.97 MIL/UL 4.20 - 5.00 HGB 12.5 g/dL 12.0 - 15.0 HCT 36.0 % 37.0 - 47.0 MCV 91 FL 80 - 100 MCH 31.5 PG 26.0 - 35.0 MCHC 34.7 % 28.0 - 37.3 RDW 11.9 %CV 10.5 - 14.5 PLATELETS 300 X10 3UL 150 - 400 NRBC 0 % 0 - 0 DIFFERENTIAL AUTOMATED NRG COMP METAB PANEL - 04/27/18 20:33 GLUCOSE 95 MG/DL 65 - 110 BUN 10 MG/DL 7 - 21 CREATININE 0.6 mg/dl 0.7 - 1.5 BUN/CRE RATIO 16.7 7.0 - 25.0 SODIUM 139 MMOL/L 137 - 145 POTASSIUM 4.1 MMOL/L 3.6 - 5.0 CHLORIDE 106 MMOL/L 98 - 107 CO2 16 mmol/L 22 - 30 SGOT 17 U/L 8 - 39 SGPT 22 U/L 9 - 52 ALKALINE PHOS 121 U/L 20 - 155 TOTAL BILI 0.20 MG/DL 0.20 - 1.20 TOTAL PROTEIN 6.6 G/DL 6.3 - 8.2 ALBUMIN 3.7 G/DL 3.5 - 5.0 CALCIUM 9.4 MG/DL 8.4 - 10.2 AGE 22 YEARS NRG gfr 135 NRG eGFR >60 mL/min/BSA NRG ABO/RH BLOOD TYPING - 04/27/18 20:33 ABO RH A POSITIVE NRG TSH - 04/27/18 20:33 TSH 1.28 uIU/mL 0.50 - 4.68 CHLAMYDIA GC BY PCR - 10/05/18 16:45 Media Type URINE NRG C. Trachomatis Amplified NEGATIVE NEG N. Gonorrhoeae Amplified NEGATIVE NEG Encounters ACCT No. Visit Date/Time Discharge Status Pt. Type Provider Facility Loc./Unit Complaint [id number] 07/03/2014 16:58:00 07/03/2014 23:59:59 CLS Outpatient MICHAEL DARLING DO [id number] 05/30/2014 14:27:00 05/30/2014 23:59:59 CLS Outpatient JERRY PSYCHIATRIC NURSELINNEA Serra [id number] 04/06/2014 14:10:00 04/06/2014 23:59:59 CLS Outpatient DARLING DO MICHAEL Mayes [id number] 04/06/2014 14:10:00 04/06/2014 23:59:59 CLS Outpatient DARLING DO MICHAEL Mayes [id number] 03/30/2014 09:30:00 03/30/2014 23:59:59 CLS Outpatient MCMILLAN LSCS, PADMINI Migel [id number] 03/27/2014 13:12:00 03/27/2014 23:59:59 CLS Outpatient ROSSIE CHRIS AYDEE Lainez [id number] 03/16/2014 13:53:00 03/16/2014 23:59:59 CLS Outpatient MCMILLAN LSCSEUGENIOPADMINI A [id number] 03/06/2014 18:20:00 03/06/2014 23:59:59 CLS Outpatient DARLING DO MICHAEL Mayes [id number] 02/16/2014 08:56:00 02/16/2014 23:59:59 CLS Outpatient MCMILLAN LSCSEUGENIOPADMINI A [id number] 02/08/2014 13:56:00 02/08/2014 23:59:59 CLS Outpatient ELIZABETH LYONS APRNRISHI Lainez [id number] 02/07/2014 08:15:00 02/07/2014 23:59:59 CLS Outpatient MCMILLAN LSCSPADMINI Migel [id number] 01/18/2014 14:09:00 01/18/2014 23:59:59 CLS Outpatient ELIZABETH LYONS APRNRISHI Lainez [id number] 12/22/2013 14:28:00 12/22/2013 23:59:59 CLS Outpatient DAVID PSYCHIATRIC NURSENADIR Serra [id number] 12/22/2013 14:28:00 12/22/2013 23:59:59 CLS Outpatient DAVID MOSHERNADIR Serra [id number] 12/06/2013 16:38:00 12/06/2013 23:59:59 CLS Outpatient DARLING DOMICHAEL [id number] 10/03/2013 17:51:00 10/03/2013 23:59:59 CLS Outpatient DARLING DO MICHAEL Mayes [id number] 09/28/2013 14:08:00 09/28/2013 23:59:59 CLS Outpatient ARGENIS WANG APRN Cindi [id number] 09/28/2013 14:08:00 09/28/2013 23:59:59 CLS Outpatient ARGENIS WANG APRN Cindi [id number] 09/26/2013 15:52:00 09/26/2013 23:59:59 CLS Outpatient MICHAEL DARLING DO Gerber [id number] 09/08/2013 00:00:00 09/08/2013 23:59:59 CLS Outpatient WHITE DDSJUANITA Robyn [id number] 09/06/2013 11:12:00 09/06/2013 23:59:59 CLS Outpatient MICHAEL DARLING DO Gerber [id number] 09/05/2013 16:24:00 09/05/2013 23:59:59 CLS Outpatient LINNEA EDWARDS APRN [id number] 09/05/2013 16:24:00 09/05/2013 23:59:59 CLS Outpatient LINNEA EDWARDS APRN [id number] 02/10/2013 16:47:00 02/10/2013 23:59:59 CLS Outpatient MICHAEL DARLING DO [id number] 11/22/2012 15:17:00 11/22/2012 23:59:59 CLS Outpatient MICHAEL DARLING DO Gerber [id number] 08/30/2012 16:55:00 08/30/2012 23:59:59 CLS Outpatient MICHAEL DARLING DO [id number] 07/12/2013 14:16:00 Document Registration [id number] 07/07/2013 15:28:00 Document Registration [id number] 05/03/2013 17:08:00 Document Registration [id number] 03/02/2013 13:13:00 Document Registration [id number] 04/27/2018 20:33:00 Document Registration [id number] 10/05/2018 17:35:00 10/05/2018 23:59:00 DIS Outpatient Shania iJ [facility] HEIKE LAB [id number] 07/05/2018 17:04:00 07/05/2018 23:59:00 DIS Outpatient Romero [facility] HEIKE ENCNTR FOR GENERAL ADULT MEDICAL EXAM W/O ABNORMAL FINDINGS [id number] 07/05/2018 15:56:00 07/05/2018 23:59:00 [facility] [id number] 03/29/2018 03:35:00 05/17/2018 14:41:00 DIS Preadmit oRmero [facility] MBU LETICIA 6.15.18 [id number] 04/27/2018 14:26:00 04/27/2018 17:15:00 [facility] [id number] 04/06/2018 15:46:00 04/06/2018 23:59:00 [facility] W/O ABNORMAL FINDINGS [id number] 03/03/2018 09:13:00 03/03/2018 23:59:00 [facility] [id number] 02/17/2018 11:38:00 02/17/2018 23:59:00 [facility] [id number] 09/22/2017 17:31:00 09/22/2017 23:59:00 [facility] MEDICAL EXAM W/O ABNORMAL FINDINGS [id number] 09/22/2017 16:30:00 09/22/2017 23:59:00 [facility] [id number] 09/17/2017 15:45:00 09/17/2017 18:10:00 [facility] [id number] 11/03/2016 11:53:00 11/03/2016 23:59:00 DIS Outpatient Cody Mott [id number] 10/01/2016 16:19:00 10/01/2016 20:39:00 [facility] [id number] 09/24/2016 09:39:53 Document Registration [id number] 04/27/2018 20:35:00 04/29/2018 12:30:00 DIS Inpatient ABENA PORTER 009 39 WEEKS IUP [id number] 04/30/2018 17:07:00 Document Registration [id number] 07/05/2018 14:54:13 07/05/2018 23:59:59 CLS Outpatient Driss [facility] 6 week PP [id number] 05/10/2018 10:55:00 05/10/2018 23:59:59 CLS Outpatient [id number] 04/29/2018 12:54:00 04/29/2018 23:59:59 CLS Outpatient [id number] 04/23/2018 16:19:00 04/23/2018 23:59:59 CLS Outpatient [id number] 04/23/2018 12:45:00 04/23/2018 23:59:59 CLS Outpatient [id number] 04/20/2018 14:36:02 04/20/2018 23:59:59 CLS Outpatient Driss [facility]asso [facility] ob check [id number] 04/06/2018 11:36:48 04/06/2018 23:59:59 CLS Outpatient Driss Jasso [facility] ob check [id number] 03/23/2018 14:00:53 03/23/2018 23:59:59 CLS Outpatient Radhika Marc[facility] ob check [id number] 03/03/2018 13:59:18 03/03/2018 23:59:59 CLS Outpatient Driss [facility] ob check [id number] 02/18/2018 08:28:00 02/18/2018 23:59:59 CLS Outpatient Ignacio [facility] [id number] 02/17/2018 13:45:22 02/17/2018 23:59:59 CLS Outpatient Radhika Marc[facility] ob check [id number] 02/08/2018 15:38:05 02/08/2018 23:59:59 CLS Outpatient Driss [facility] OB CHECK [id number] 01/08/2018 14:02:51 01/08/2018 23:59:59 CLS Outpatient Radhika Marc[facility] ob check [id number] 12/11/2017 13:24:46 12/11/2017 23:59:59 CLS Outpatient Driss [facility] anatomy [id number] 12/04/2017 12:05:00 12/04/2017 23:59:59 CLS Outpatient Ign[facility] [id number] 11/12/2017 13:32:12 11/12/2017 23:59:59 CLS Outpatient Radhika Marc[facility] ob check [id number] 11/06/2017 08:13:24 11/06/2017 23:59:59 CLS Outpatient NGHIA OCONNOR Ignacio [facility] n/v [id number] 11/05/2017 14:53:00 11/05/2017 23:59:59 CLS Outpatient Ign[facility] [id number] 11/02/2017 13:10:00 11/02/2017 23:59:59 CLS Outpatient Ign[facility] [id number] 10/16/2017 13:32:22 10/16/2017 23:59:59 CLS Outpatient Driss [facility] ob check [id number] 09/23/2017 00:00:00 09/23/2017 23:59:59 CLS Outpatient Scanned Documents [id number] 09/22/2017 14:17:33 09/22/2017 23:59:59 CLS Outpatient Radhika Marcano [facility] [employer]OMAT[employer] BUFFING WHEEL FORMER [id number] 06/21/2015 00:47:00 06/21/2015 02:21:00 DIS Emergency GEE LOUISE, CHUCKY Shepard [facility] ER [id number] 03/17/2015 13:43:00 03/17/2015 14:50:00 DIS Emergency GARY THORNTON APRN [facility] ER [id number] 01/20/2011 23:56:00 Document Registration [id number] 05/14/2018 06:45:10 ACT Document Registration
--- NOTE | 2018-11-07 11:25 | Diagnostic Imaging Report ---
INDICATION: Injury with pain FINDINGS: There is extensive swelling about the ankle laterally. Medial lateral and posterior malleolar appeared intact. The plafond and talar dome intact. The base of the fifth metatarsal intact. No fracture identified. IMPRESSION: Swelling laterally, however no fracture apparent. Dictated by: Dictated on workstation # [id number]
--- NOTE | 2018-11-07 11:43 | ED Lower Extremity ---
General Chief Complaint: Lower Extremity Stated Complaint: FALL/R ANKLE INJ Nursing Triage Note: pt presents to ed with complaints of lower r ankle pain after fall yesterday. pt denies any other injury. Nursing Sepsis Screen: No Definite Risk Source: patient Exam Limitations: no limitations History of Present Illness Date Seen by Provider: Nov 07, 2018 Time Seen by Provider: 11:00 Initial Comments Patient is a 23-year-old female who presents to the emergency room with complaints of right ankle pain after falling down 2 stairs yesterday while drinking. She denies any other injuries from the fall but woke up this morning and had pain with ambulation. She reports pain with bearing weight ambulation. Onset: yesterday Pain/Injury Location: right ankle Method of Injury: fell Modifying Factors: Worse With Movement Allergies and Home Medications Allergies Coded Allergies: No Known Drug Allergies (Unverified , 01/21/11) Home Medications Lisdexamfetamine Dimesylate 10 Mg Capsule, 50 MG PO DAILY, (Reported) Patient Home Medication List Home Medication List Reviewed: Yes Review of Systems Constitutional: no symptoms reported, see HPI Musculoskeletal: see HPI, joint pain (right ankle pain) All Other Systems Reviewed Negative Unless Noted: Yes Past Slypuui-Ceomrk-Vklgxm Hx Past Med/Social Hx: Reviewed Nursing Past Med/Soc Hx Patient Social History Alcohol Use: Denies Use Recreational Drug Use: No Smoking Status: Never a Smoker Recent Foreign Travel: No Contact w/Someone Who Travel: No Recent Infectious Disease Expo: No Physical Abuse: No Sexual Abuse: No Mistreated: No Fear: No Past Medical History Surgeries: Yes (r ankle) Orthopedic Respiratory: No Cardiac: No Neurological: No Genitourinary: No Gastrointestinal: No Musculoskeletal: No Endocrine: No HEENT: No Cancer: No Psychosocial: No Blood Disorders: No Family Medical History Reviewed Nursing Family Hx Physical Exam Vital Signs Vital Signs - First Documented 11/07/18 11:00 Temp 97.8 Pulse 86 Resp 18 B/P (MAP) 128/74 (92) Pulse Ox 99 Capillary Refill : Less Than 3 Seconds Height, Weight, BMI Height: 5'6.00" Weight: 174lbs. oz. 78.854203kh; BMI Method:Stated General Appearance: WD/WN, no apparent distress Cardiovascular: normal peripheral pulses, regular rate, rhythm, no edema, no gallop, no JVD, no murmur Respiratory: chest non-tender, lungs clear, normal breath sounds, no respiratory distress, no accessory muscle use Hips: bilateral hip non-tender, bilateral hip normal inspection, bilateral hip normal range of motion, bilateral hip no evidence of injury Legs: bilateral leg non-tender, bilateral leg normal inspection, bilateral leg normal range of motion, bilateral leg no evidence of injury Knees: bilateral knee non-tender, bilateral knee normal inspection, bilateral knee normal range of motion, bilateral knee no evidence of injury Ankles: left ankle non-tender, left ankle normal inspection, left ankle normal range of motion, left ankle no evidence of injury; right ankle pain, right ankle soft tissue tenderness, right ankle swelling Neurologic/Tendon: normal sensation, normal motor functions, normal tendon functions, responds to pain, no evidence tendon injury Neurologic/Psychiatric: alert, normal mood/affect, oriented x 3 Skin: normal color, warm/dry Progress/Results/Core Measures Results/Orders My Orders Orders - TRAVIS SOLANO Ankle, Right, 3 Views (11/07/18 11:05) Vital Signs/I&O 11/07/18 11/07/18 11:00 11:49 Temp 97.8 Pulse 86 87 Resp 18 16 B/P (MAP) 128/74 (92) 124/71 (88) Pulse Ox 99 98 Blood Pressure Mean: 92 Diagnostic Imaging Diagonstic Imaging: Xray Plain Films/CT/US/NM/MRI: ankle Comments NAME: TASHI,JOSE L [facility] REC#: [id number] PHYSICIAN: TRAVIS SOLANO CC: MILE SOLANO THOMAS D Page 1 of 1 RADIOLOGY REPORT [facility] [place] [place] CC: MILE SOLANO THOMAS D Page 1 of 1 RADIOLOGY REPORT NAME: JOSE L AKINS [facility] REC#: [id number] PT STATUS: REG ER : 1995 PHYSICIAN: TRAVIS SOLANO ADMIT DATE: 11/07/18/ER Signed Date of Exam: 11/07/18 ANKLE, RIGHT, 3 VIEWS INDICATION: Injury with pain FINDINGS: There is extensive swelling about the ankle laterally. Medial lateral and posterior malleolar appeared intact. The plafond and talar dome intact. The base of the fifth metatarsal intact. No fracture identified. IMPRESSION: Swelling laterally, however no fracture apparent. Dictated by: Dictated on workstation # [id number] Dict: 11/07/18 1123 Trans: 11/07/18 1136 Interpreted by: SARAY GOLDSMITH Electronically signed by: SARAY GOLDSMITH 11/07/18 1136 Reviewed: Reviewed by Me Departure Impression Primary Impression: Right ankle sprain Disposition: HOME, SELF-CARE Condition: Stable/Unchanged Departure-Patient Inst. Decision time for Depature: 11:41 Referrals: [facility] (PCP/Family) Primary Care Physician Patient Instructions: Ankle Sprain (DC) Add. Discharge Instructions: Use the Reggie bandage, crutches, air stirrup as needed for comfort, rest, ice the ankle at 20 min intervals, ibuprofen and Tylenol as needed for pain. Follow-up with your primary care provider within 1 week for recheck. Return back to the emergency room for any worsening symptoms or concerns as needed. All discharge instructions reviewed with patient and/or family. Voiced understanding. TRAVIS SOLANO Nov 07, 2018 11:43
[2018-11-07 11:49] VITALS: BP 124/71
== END 2018-11-07 11:48 | disposition home or self-care (01) ==
LOC: EDUNIT# 10:29 → ER 10:30
DX: S93.401A Sprain of unspecified ligament of right ankle, initial encounter (principal); W10.8XXA Fall (on) (from) other stairs and steps, initial encounter
CPT/HCPCS: 73610